=== PATIENT | female | born 1960 ===

== ENCOUNTER 2018-08-08 01:14 | Inpatient (IN) | payer BC ==
[~2018-08-08] VITALS: Ht 160 cm; Wt 91.6 kg
[2018-08-08] VITALS (10 sets, daily range): BP systolic 127–183; BP diastolic 60–82
[~2018-08-08 01:14] MED LIST: ACET500T68 PO; ATEN-1 PO; BUPR-474 PO; CHOL10005 PO; COPP2CAP2 PO; DICL-195 PO; GABA-549 PO; GARL10004 PO; GLUC-198 PO; LACT1CAP6 PO; OMEP-218 PO; POTA99TA6 PO; TRAM-420 PO; VITA-200 PO; VITA1CAP46 PO; [UNRECOGNIZED DRUG - CODE] PO; [UNRECOGNIZED DRUG - CODE] PO
[2018-08-08] MEDS ORDERED: fentaNYL CITR 100 MCG/2 ML AMP ONE ×2 (09:20→16:23)
[2018-08-08] MEDS ORDERED: DEXAMETHASONE SOD PHOS 10MG/ML ONE (09:21)
[2018-08-08] MEDS ORDERED: LIDOCAINE MPF 1% 5 ML VIAL ONE (09:21)
[2018-08-08] MEDS ORDERED: KETAMINE HCL-NS 50 MG/5 ML SYR ONE (09:21)
[2018-08-08] MEDS ORDERED: ONDANSETRON 4 MG/2 ML VIAL ONE (09:21)
[2018-08-08] MEDS ORDERED: PROPOFOL EMUL(*) 10MG/ML 20 ML 20 ML ONE (09:21)
[2018-08-08] MEDS ORDERED: ROCURONIUM BR 10 MG/ML 5 ML SY 5 ML ONE (09:22)
[2018-08-08] MEDS ORDERED: NORMOSOL R SOLN(*) 1000 ML BAG 1,000 ML IV PRN (10:50)
[2018-08-08] MEDS ORDERED: ceFAZolin(*) 2GM/D5W 50ML 50 ML IVPB ONE (10:50)
[2018-08-08] MEDS ORDERED: MIDAZOLAM 2 MG/2 ML VIAL IVP PRN (10:50)
[2018-08-08] MEDS ORDERED: BACITRACIN 50000 UNIT/VIAL 50,000 UNIT in NS 0.9% IRRIG(*) 1000ML PLCT 1,000 ML IR PRN (10:50)
[2018-08-08] MEDS ORDERED: LIDOCAINE/SOD BICARB 8.4% SYR ID ONE (10:50)
[2018-08-08] MEDS ORDERED: ACETAMINOPHEN 500 MG TAB PO ONE (10:50)
[2018-08-08] MEDS ORDERED: REMIFENTANIL HCL 1 MG VIAL ONE ×2 (11:45→15:15)
[2018-08-08] MEDS ORDERED: ROPIVACAINE 0.2% 20 ML VIAL ONE (12:31)
[2018-08-08] MEDS ORDERED: THROMBIN (BOVINE) 20,000 UNIT VIAL ONE (12:31)
[2018-08-08] MEDS ORDERED: GLYCOPYRROLATE 0.2MG/ML 1 ML INJ ONE (13:48)
[2018-08-08] MEDS ORDERED: HYDROmorphone HCL 2 MG/ML SDV ONE (16:26)
[2018-08-08] MEDS ORDERED: diphenhydrAMINE 25 MG CAP PO PRN (17:40)
[2018-08-08] MEDS ORDERED: BENZOCAINE/MENTHOL 1 EACH LOZG PO PRN (17:40)
[2018-08-08] MEDS ORDERED: MAGNESIUM HYDROXIDE* 30ML UDCP PO PRN (17:40)
[2018-08-08] MEDS ORDERED: BISACODYL 10 MG SUPP PR PRN (17:40)
[2018-08-08] MEDS ORDERED: HYDROmorphone HCL 2 MG/ML SDV IVP PRN (17:40)
[2018-08-08] MEDS ORDERED: FLUSH 10 ML SYR IVP PRN (17:40)
[2018-08-08] MEDS ORDERED: LR(*) 1000 ML BAG 1,000 ML IV PRN ×2 (17:40→17:55)
[2018-08-08] MEDS ORDERED: ACETAMINOPHEN(*)1000 MG/100 ML 100 ML IVPB PRN (17:40)
[2018-08-08] MEDS ORDERED: ONDANSETRON 4 MG/2 ML VIAL IVP PRN (17:40)
--- NOTE | 2018-08-08 18:13 | OPERATIVE REPORT 1 ---
EVENT DATE: August 08, 2018 SURGEON: Matt Baez MD ANESTHESIOLOGIST: Jimy Shaffer MD ANESTHESIA: General endotracheal anesthesia. BI SPECIALIST: Chris Trujillo PA-C PREOPERATIVE DIAGNOSES 1. Multi-level degenerative disk disease. 2. L3-L4 degenerative spondylolisthesis. 3. L3-L4 severe central spinal stenosis. 4. Status post L4 to S1 laminectomy and fusion. 5. L4-L5 fusion nonunion. 6. Retained deep implants. 7. Neurogenic claudication and radiculopathy secondary to #2 above. POSTOPERATIVE DIAGNOSES 1. Multi-level degenerative disk disease. 2. L3-L4 degenerative spondylolisthesis. 3. L3-L4 severe central spinal stenosis. 4. Status post L4 to S1 laminectomy and fusion. 5. L4-L5 fusion nonunion. 6. Retained deep implants. 7. Neurogenic claudication and radiculopathy secondary to #2 above. PROCEDURES PERFORMED 1. Removal of deep implants L4 to S1. 2. Exploration of fusion. 3. Re-instrumentation and re-fusion of L4-L5. 4. L3-L4 laminectomy. 5. Placement of pedicle screws in bilateral L3 pedicles. 6. Placement of instrumentation and reduction of L3-L4 spondylolisthesis using pedicle screw construct from L3 to L5. INTRAVENOUS FLUIDS 2300 mL. ESTIMATED BLOOD LOSS 140 mL. IMPLANTS USED 1. Pedicle screws 6.5 mm x 45 mm from [employer] times six. 2. Connecting rods 5.5 mm x 70 mm from [employer] times two. 3. Locking caps for pedicle screws from [employer] times six. SPECIMENS None. DRAINS None. COMPLICATIONS None. DISPOSITION Post-Anesthesia Care Unit. INDICATIONS FOR SURGERY Ms. Tabares is a 58-year-old female who underwent L4 to S1 transforaminal lumbar interbody fusion back in 2014. She initially had very good results with alleviation of her radiating leg pain as well as back pain, but then last summer, she had a recurrence of back pain accompanied by significant left leg numbness and right leg radiating pain, numbness, and tingling. She had a significant decrease in walking tolerance secondary to heaviness and tiredness in her legs and had difficulty lying flat on her back, having to sleep in a recliner every night secondary to the symptoms she gets if she lies on her back. Her physical examination was significant for decreased range of motion in extension as well as lateral bending. She had negative crossed straight leg raise and negative straight leg raising tests, but did have some decreased extensor hallucis longus, quadriceps, hamstrings, and peroneals on the left at 4+/5 compared to 5/5 throughout on the right. Sensation was intact in all dermatomes. Imaging studies showed a spondylolisthesis grade 2 at L3-L4 while standing, which reduced to about a grade 1 spondylolisthesis when lying supine in the MRI scanner. Her pedicle screw construct was present from L4 to S1 with PEEK interbody implants at L4-L5 and L5-S1. We sent her for a CT scan that did not show definitive evidence of fusion at L4-L5, and the MRI also showed severe stenosis at L3-L4. Secondary to ongoing symptoms and failure of nonsurgical care including physical therapy, medications, activity modifications, etc., Ms. Tabares was ultimately offered and elected to undergo removal of implants, exploration of fusion, re-fusion if necessary at L4-L5, laminectomy at L3-L4, and posterolateral instrumented fusion from L3 to L4 and to L5 if necessary. Prior to surgery, I explained in detail to the patient the possible risks of surgery. These risks include bleeding, infection, damage to surrounding structures, nerve root injury, spinal fluid leak, meningitis, persistent and/or worsening pain, , blindness, sexual dysfunction, autonomic nervous system dysfunction, and other unforeseen medical and surgical complications. An understanding that in general spinal surgery is more predictive at improving extremity discomfort than axial spine pain was stressed. Additional discussion was had regarding the revision nature of the procedure, and the patient understands that all potential risks are increased, including infection, dural tear, spinal fluid leak, nerve root injury, etc., secondary to the revision nature of the procedure and the presence of significant scar tissue. DESCRIPTION OF PROCEDURE On the day of surgery, patient was met in the preoperative hold area, and all questions were answered. The operative site was identified and marked by myself. The patient was brought in good condition to the operating room, and after succumbing to anesthesia, was positioned in the prone position on a Kvng table. All bony protuberances and soft tissues were well padded in the standard fashion. Preoperative antibiotics were administered according to the appropriate timing schedule. Care was taken to maintain appropriate perfusion pressures during anesthesia. At the conclusion of the procedure, sponge and needle counts were correct times two. A final timeout was undertaken by members of the operating team to confirm correct levels, correct surgery, and correct patient. The patient was then prepped and draped in the standard sterile orthopedic fashion. A vertical incision was made overlying the intended surgical levels utilizing the majority of the old incision and a little bit of a new incision superiorly. Sharp dissection was carried out down to the posterior elements of L2 and L3, and the soft tissues were elevated in a subperiosteal manner off the L2 and L3 lamina. Care was then taken to use electrocautery to dissection kind of anterolaterally out towards the previously placed pedicle screw construct, and once the pedicle screw construction was exposed bilaterally, the caps and rods were removed using appropriate spinal instrumentation. At this point, we began exploring the fusion mass. It was relatively clear when grabbing and lifting up on the L4 pedicle screws that there was motion occurring at the L4-L5 level. To confirm this, we brought fluoroscopy into the field, and under lateral fluoroscopy, we went live and were, indeed, able to see significant motion, indicating a nonunion at that L4-L5 level. Secondary to this, we elected to include the L4-L5 level in our fusion construct. Once we had confirmed the presence of the nonunion at L4-L5, we removed all pedicle screws and irrigated with copious sterile saline solution. Attention was then turned to the L3-L4 laminectomy. The spinous process of L3 was removed using a Leksell rongeur. The lamina was then thinned down the middle utilizing a combination of a Leksell rongeur and a high-speed frederic. Once we were able to identify the superior attachment of the ligamentum flavum on the inferior aspect of the L3 lamina, I was able to use a curved curette to undermine that ligamentous insertion and enter the canal. A [place] elevator was used to free any dural adhesions from surrounding bone and soft tissue prior to use of the Kerrison punch. #3 and #4 Kerrison punches were used to perform midline decompression. We then performed bilateral lateral recess decompressions, removing significant amounts of thickened ligamentum flavum and overgrown bone and facet joint. At the conclusion of this, a [place] elevator was used to ensure that there was good decompression of the lateral recesses as well as the foramina of all involved nerve roots. Hemostasis was obtained in the lateral recesses utilizing a combination of FloSeal and surgical patties. Attention was then turned to placement of pedicle screws. We had previously cleared off the start points for L3 pedicles bilaterally out to the tips of the spinous processes of L3 on both sides. We then exposed what was left of the spinous processes of L4 in addition to the superior aspect of the L5-S1 fusion mass. Once we had accomplished this, we first replaced the screws at L4 and L5 utilizing the same size screws, which were 6.5 mm x 45 mm in both cases. We tested these with neurophysiologic monitoring, and they all tested over 20 mA. We then turned our attention to L3, and a high-speed frederic was used to decorticate the overlying bone at the starting point for pedicle screws. This was at approximately the junction of the midpoint of the transverse process, the superior aspect of the L3 pars interarticularis, and lateral aspect of the L2-L3 facet. A Lenke style probe was advanced against resistance through the isthmus of the pedicle, and we then used a ball-tip feeler to check all the [place] of the pedicles superiorly, inferiorly, medially, laterally, as well as distally to confirm absence of bony breaching. Once this was confirmed, we selected 6.5 mm x 45 mm pedicle screws with extended tabs for that L3 level, and these were placed in the standard fashion. We next measured for appropriate length connecting rods and selected 70 mm connecting rods. These were placed in the tulips and down into the extended tabs of the slipped level at L3. We then carefully and gradually reduced the L3-L4 anterolisthesis using the extended tabs until we had the locking caps all the way down into the tulips of all six screws. Once this was completed, we performed final tightening using the final tightening device and breaking off the ends of the locking caps. The entire wound was then irrigated with copious sterile saline solution in preparation for the actual fusion procedure. A high-speed frederic was used to decorticate the superior aspect of the L5-S1 fusion mass, the remainder of the L4 transverse process, and the entirety of bilateral L3 transverse processes. I also utilized the high-speed frederic to decorticate the L4-L5 facet joint inside, and we packed all of that bone dust into the decorticated facet. We then utilized a combination of milled local bone and demineralized bone matrix with cancellous chips to pack the lateral gutters overlying the previously decorticated areas. Once this was completed, retractors were withdrawn, and final radiographs were obtained that showed excellent positioning of all the spinal instrumentation. The wound was then closed in layers using interrupted sutures for the deep fascia, inverted interrupted sutures for the subcutaneous tissue, and then a running subcuticular skin stitch. Sponge and needle counts were correct times two. POSTOPERATIVE CARE PLAN The patient will remain in the hospital one or two nights until she meets discharge criteria. She will be discharged home wearing a brace for a total of six weeks and with instructions to follow up with me in two weeks for a wound check and examination. YASSINE
[2018-08-08] MEDS: oxyCODONE HCL 5 MG CAP PO PRN (18:45)
--- NOTE | 2018-08-08 18:57 | RADIOLOGY IMAGING REPORT ---
FACILITY: [facility] PATIENT NAME: Dora Tabares : 1960 MR: [id number] V: [id number] EXAM DATE: ORDERING PHYSICIAN: ADAL QUARLES TECHNOLOGIST: Location: [facility] - [place] Patient: Dora Tabares : 1960 Visit/Account:[id number] Date of Sevice: 08/08/2018 Lumbar spine images INDICATION: L3-4 disc herniation. Fusion. COMPARISON: None available FINDINGS: DAP: 4.43 Gy-cm2 4 fluoroscopic images lumbar spine show localization at L3-L4. Evidence of posterior fusion spanning L4-S1. Interbody disc spacer at L4-L5 and L5-S1 noted as well. Correlate with findings at time of tram ging. IMPRESSION: Localization lower lumbar spine. Correlate with findings at time of imaging. Report Dictated By: Parish Louie MD at 08/08/2018 6:49 PM Report E-Signed By: Parish Louie MD at 08/08/2018 6:51 PM WSN:[id number]
--- NOTE | 2018-08-08 19:37 | Hospitalist Progress Note ---
Subjective Progress Notes Subjective No cp/sob. 100cc of EBL. 2000cc of crystalloid and dexamethasone given intra- op. Physical Exam Vital Signs Date Time Temp Pulse Resp B/P (MAP) Pulse Ox O2 Delivery O2 Flow Rate FiO2 08/08/18 18:45 56 12 138/71 (93) 95 Nasal Cannula 1.0 08/08/18 18:00 98.4 General Appearance: No Acute Distress (Sleepy. ) Neuro: Other (Answers questions appropriately, but forgets her questions. Sleepy) Cardiovascular: Regular Rate and Rhythm (2/6 systolic murmur across precordium and louder in axilla.) Respiratory: Clear to Auscultation Extremities: No Edema Assessment and Plan Problems: (1) Status post lumbar spinal fusion Status: Acute Assessment & Plan: No CV/pulmonary issues. DVT prophylaxis will be deferred to Dr. Baez. (2) HTN (hypertension) Status: Chronic Assessment & Plan: Chronically on atenolol. She took it this morning. It will be continued with bp/p parameters. DARYL ISRAEL MD Aug 08, 2018 19:37
[2018-08-08] MEDS: APAP/HYDROCODONE 325/5 TAB PO PRN (20:59)
[2018-08-08] MEDS: DOCUSATE SODIUM 100 MG CAP PO SCH (21:08)
[2018-08-08] MEDS: ceFAZolin(*) 2GM/D5W 50ML 50 ML IVPB SCH (21:09)
[2018-08-09] VITALS (8 sets, daily range): BP systolic 117–134; BP diastolic 51–63; Ht 160 cm; Wt 91.6 kg
[2018-08-09] MEDS ORDERED: ceFAZolin(*) 2GM/D5W 50ML 50 ML IVPB SCH (01:00)
[2018-08-09] MEDS: ACETAMINOPHEN 500 MG TAB PO PRN ×2 (02:01→12:47)
[2018-08-09] MEDS: ceFAZolin(*) 2GM/D5W 50ML 50 ML IVPB SCH ×2 (05:31→12:40)
[2018-08-09] MEDS: ATENOLOL 50 MG TAB PO SCH (09:00)
[2018-08-09] MEDS: APAP/HYDROCODONE 325/5 TAB PO PRN (09:03)
[2018-08-09] MEDS: DOCUSATE SODIUM 100 MG CAP PO SCH ×2 (09:23→21:00)
[2018-08-09] MEDS: buPROPion XL 150 MG TABCR PO SCH (09:23)
--- NOTE | 2018-08-09 09:29 | NUR ---
Physical Therapy Impression PT eval complete. Pt primarily limited by reports of significant pain. Pt performed sit<>supine transfers with SBA and use of bed rail. Pt performed safe log roll technique some verbal cues. Pt pain significantly increased when initially transferring from supine to EOB. Education provided on lumbar brace, brace donned sitting EOB. Pt performed sit<>stand xfers off EOB and commode with MinAx2.Pt took several steps to/from bed side commode with CGAx2 and use of RW. Pt's legs appeared to give out a few times, but Pt able to control on own. Education provided on lumbar precautions. Pt left supine in bed with all needs met, call light in reach, and family present in room. Pt would benefit from further skilled PT care to improve strength to allow for safe ambulation. Recommendations pending progress. Physical Therapy Goals 1. Carleen bed mobility, with correct log roll technique 2. Carleen transfers 3. Carleen ambulation of 150" ft. with use of least restrictive device 4. Carleen ability to ascend/descend 1 stair, to stimulate curb in environment 5. Independent adherence to lumbar precautions Patient's Goals
[2018-08-09] MEDS ORDERED: NS(*) 0.9% 500 ML BAG 500 ML IV ONE (09:35)
[2018-08-09] MEDS ORDERED: CALCIUM CARBONATE 500 MG CHEW PO PRN (09:35)
--- NOTE | 2018-08-09 09:59 | Hospitalist Progress Note ---
Subjective Progress Notes Subjective She was admitted s/p lumbar surgery. She had no acute events overnight. Patient Complains of: Cardiovascular: No: Chest Pain Respiratory: No: Shortness of Breath Physical Exam Vital Signs Date Time Temp Pulse Resp B/P (MAP) Pulse Ox O2 Delivery O2 Flow Rate FiO2 08/09/18 09:00 95 Room Air 08/09/18 07:35 98.4 53 16 134/59 (84) 08/09/18 04:00 1.0 Intake and Output 08/09/18 07:01 Intake Total 5250 ml Output Total 1250 ml Balance 4000 ml Intake Oral 300 ml IV Total 2550 ml Other 2400 ml Output Urine Total 1150 ml Estimated Blood Loss 100 ml General Appearance: Alert, Awake, No Acute Distress, Afebrile Cardiovascular: Other (bradycardia noted) Respiratory: No Respiratory Distress, Clear to Auscultation GI: Soft and Non-Tender Psych: Alert & Oriented X3, Appropriate Mood & Affect Assessment and Plan Problems: (1) Status post lumbar spinal fusion Status: Acute Assessment & Plan: No CV/pulmonary issues. DVT prophylaxis will be deferred to Dr. Baez. (2) HTN (hypertension) Status: Chronic Assessment & Plan: Chronically on atenolol. She took it this morning. It will be continued with bp/p parameters. (3) Urinary retention Status: Acute Assessment & Plan: She has been having difficulty urinating. She had straight catheter once this morning. Continue to monitor. She will be placed on Flomax to help with urination. Will also give 500ml bolus. Exam Sepsis Risk: No Definite Risk Problem Qualifiers (1) HTN (hypertension): Hypertension type: essential hypertension Qualified Codes: I10 - Essential (primary) hypertension NUPUR WALSH LEGAL ADMINISTRATIVE SECRETARY Aug 09, 2018 09:59
[2018-08-09] MEDS: TAMSULOSIN HCL 0.4 MG CAP PO SCH (10:04)
--- NOTE | 2018-08-09 12:23 | NUR ---
This Physical Therapist or Architect Internship was present for the entire physical therapy session directing the services, making the skilled judgement, and was not engaged in treating another patient or doing another task at the same time as the treatment session. Addendum: 08/09/18 at 1223 by FLEX ANDERSON PT Amended: Links added.
[2018-08-09] MEDS: oxyCODONE HCL 5 MG CAP PO PRN (15:14)
[2018-08-09] MEDS: DIAZEPAM 5 MG TAB PO PRN (16:42)
[2018-08-10] MEDS: APAP/HYDROCODONE 325/5 TAB PO PRN ×2 (00:42→08:27)
[2018-08-10 03:21] VITALS: BP 132/57
[2018-08-10] MEDS: DIAZEPAM 5 MG TAB PO PRN ×2 (03:26→11:17)
[2018-08-10 07:05] VITALS: BP 146/72
[2018-08-10] MEDS ORDERED: POLYETHYLENE GLYCOL 17 GM PKT PO SCH (09:00)
--- NOTE | 2018-08-10 09:00 | NUR ---
Met with patient who reports needing further rehab before returning home. Rehab philosophy emphasized, pt agrees to get oob with PT/OT/NSG. Olivia Landry notified to request insurance approval, pt will admit to ECF pending insurance. PASRR negative.
--- NOTE | 2018-08-10 09:14 | Hospitalist Progress Note ---
Subjective Progress Notes Subjective She was admitted s/p lumbar fusion. She reports urinary retention post- operatively. She was started on Flomax, without any relief yesterday. Patient Complains of: Cardiovascular: No: Chest Pain Respiratory: No: Shortness of Breath Physical Exam Vital Signs Date Time Temp Pulse Resp B/P (MAP) Pulse Ox O2 Delivery O2 Flow Rate FiO2 08/10/18 07:30 100 Room Air 08/10/18 07:05 98.0 62 16 146/72 (96) 08/09/18 04:00 1.0 Intake and Output 08/10/18 01:01 Intake Total 1030 ml Output Total 750 ml Balance 280 ml Intake Oral 880 ml IV Total 150 ml Output Urine Total 750 ml General Appearance: Alert, Awake, No Acute Distress, Afebrile Neuro: No Gross deficits Cardiovascular: Regular Rate and Rhythm Respiratory: No Respiratory Distress, Clear to Auscultation GI: Soft and Non-Tender Psych: Alert & Oriented X3, Appropriate Mood & Affect Assessment and Plan Problems: (1) Status post lumbar spinal fusion Status: Acute Assessment & Plan: No CV/pulmonary issues. DVT prophylaxis will be deferred to Dr. Baez. (2) HTN (hypertension) Status: Chronic Assessment & Plan: Chronically on atenolol. It was continued with hold parameters. (3) Urinary retention Status: Acute Assessment & Plan: She has been having difficulty urinating. She has Devine placed. She was placed on Flomax to help with urination. Urology to consult. Exam Sepsis Risk: No Definite Risk Problem Qualifiers (1) HTN (hypertension): Hypertension type: essential hypertension Qualified Codes: I10 - Essential (primary) hypertension NUPUR WALSH ENGINEERING SECRETARY Aug 10, 2018 09:14
[2018-08-10] MEDS: ATENOLOL 50 MG TAB PO SCH (09:26)
[2018-08-10] MEDS: TAMSULOSIN HCL 0.4 MG CAP PO SCH (09:27)
[2018-08-10] MEDS: buPROPion XL 150 MG TABCR PO SCH (09:27)
[2018-08-10] MEDS: DOCUSATE SODIUM 100 MG CAP PO SCH (09:28)
--- NOTE | 2018-08-10 10:38 | Hospitalist Consultation ---
History of Present Illness Requesting Physician Dr. Matt Baez Reason for Consult Postoperative voiding dysfunction Chief Complaint Postoperative voiding dysfunction History of Present Illness 58-year-old woman who is postoperative day #2 status post extensive lumbar spine manipulation for spinal stenosis and radiculopathy. Postoperatively, she had poor sensation of fullness and impaired emptying. She was begun on Flomax and straight catheterized but continued to have voiding dysfunction and a Devine catheter has been placed. Her preoperative voiding status was consistent with detrusor instability/urge incontinence for which she was using multiple pads a day. She had mild stress incontinence at most. No previous urologic surgeries or manipulations. History Problems: (1) Urinary retention Status: Acute Comment: She has been having difficulty urinating. She has Devine placed. She was placed on Flomax to help with urination. Urology to consult. Home Meds Reported Medications Omeprazole Magnesium (PRILOSEC OTC) 20 Mg Tablet., 1 TAB PO QDAY, TAB 08/01/18 Lactobacillus Combination No.4 (PROBIOTIC) 1 Each Capsule, 1 EACH PO QDAY, CAPSULE 08/01/18 Cholecalciferol (Vitamin D3) (VITAMIN D3) 1,000 Unit Tablet, 5000 UNIT PO BID, TAB 08/01/18 Glucosa Odom 2KCL/Chondroitin Odom (GLUCOSAMINE & CHONDROITIN CAP) 1 Each Capsule, 1 EACH PO QDAY, CAPSULE 08/01/18 Garlic (GARLIC OIL) 1,000 Mg Capsule, 1000 MG PO QDAY, CAPSULE 08/01/18 Potassium Gluconate (POTASSIUM) 99 Mg Tablet, 99 MG PO QDAY 08/01/18 Copper Gluconate (COPPER) 2 Mg Capsule, 2 MG PO QDAY, CAPSULE 08/01/18 Vitamin B Complex (VITAMIN B COMPLEX) 1 Each Capsule, 1 EACH PO QDAY, CAPSULE 08/01/18 Vitamin E Acetate (VITAMIN E) 400 Unit Capsule, 400 UNITS PO QDAY, CAPSULE 08/01/18 Vitamin A (VITAMIN A) 8,000 Unit Capsule, 8000 UNIT PO QDAY, CAPSULE 08/01/18 Acetaminophen (TYLENOL EXTRA STRENGTH) 500 Mg Tablet, 500-1000 MG PO PRN, TAB 08/01/18 Tramadol Hcl (TRAMADOL HCL) 50 Mg Tablet, 50-100 MG PO Q6H PRN for PAIN, TAB 08/01/18 Gabapentin (GABAPENTIN) 300 Mg Capsule, 300 MG PO PRN PRN for PRN, CAPSULE 08/01/18 Diclofenac Sodium (DICLOFENAC SODIUM) 75 Mg Tablet.dr, 75 MG PO BID, TAB 08/01/18 Estrogen,Merced/Me-Testosterone (ESTROGEN-METHYLTESTOS F.S. TAB) 1 Each Tablet, 1.5-2.5 MG PO QDAY 08/01/18 Atenolol (ATENOLOL) 50 Mg Tablet, 1 TAB PO QDAY, TAB 08/01/18 Bupropion Hcl (WELLBUTRIN XL) 300 Mg Tab.er.24h, 300 MG PO QDAY, TAB 08/01/18 Allergies: Coded Allergies: No Known Drug Allergies (Unverified , 08/01/18) Patient History: FH: Crohn's disease FATHER, FH: cancer FATHER, BROTHER OR SISTER FH: hypertension MOTHER, FH: type 2 diabetes MOTHER, Transient ischemic attacks FATHER, Hx Smoking: Yes (3 PPDX 10 YEARS) Smoking Status: Former Smoker, Heavy Tobacco Smoker When Quit Tobacco?: AGE 23 Alcohol Used: Liquor Hx Substance Use Disorder: No Social Drug Use: Never History of IV Drug Use: No Review of Systems Genitourinary: Other (predominantly urge type incontinence preoperatively) Exam Vital Signs Vital Signs Date Time Temp Pulse Resp B/P (MAP) Pulse Ox O2 Delivery O2 Flow Rate FiO2 08/10/18 11:18 98.7 78 14 146/76 (99) 95 Room Air 08/10/18 10:33 General Appearance: Alert, Awake, No Acute Distress GI: Abd Soft and Non-Tender : No CVA Tenderness, Other (Devine catheter is indwelling draining clear urine) Medical Decision Making Pre-Admit Course Medical Record Review: Yes Assessment and Plan Problems: (1) Urinary retention Status: Acute Time Spent on Plan of Care: < 30 min Venous Thromboembolism Antithrombotics Is Pt On Any Antithrombotics?: Yes Exam Sepsis Risk: No Definite Risk MATT KIMBROUGH MD Aug 10, 2018 10:38
[2018-08-10 11:18] VITALS: BP 146/76
--- NOTE | 2018-08-10 12:14 | NUR ---
Physical Therapy Impression Attempted to see pt for mobility this am. Pt reports a high increase in pain and requested to attempt again later. After discussion with pt's nurse and D/C buyer planner, pt will likely transfer to [facility] this date, thus will receive therapy as her eval at that time. Physical Therapy Goals 1. Carleen bed mobility, with correct log roll technique 2. Carleen transfers 3. Carleen ambulation of 150" ft. with use of least restrictive device 4. Carleen ability to ascend/descend 1 stair, to stimulate curb in environment 5. Independent adherence to lumbar precautions Patient's Goals
[2018-08-10] MEDS: oxyCODONE HCL 5 MG CAP PO PRN (12:24)
--- NOTE | 2018-08-10 13:20 | Psychiatric Consult ---
History of Present Illness Requesting Physician Marysol Goldsmith Reason for Consult: Psychiatric Illness Reason for Consult Anxiety and depression symptoms post surgery. History of Present Illness Mrs. Tabares presented today tearful, with anxious and depressed mood following back surgery two days ago. Per her history, she has had anxiety and depression since her teens, and symptoms have been well controlled prior to surgery with hormone replacement, vitamins, and bupropion XL 300mg PO QDAY. Historically, during times of increased stress/anxiety/depression she has been prescribed other psychiatric medications, notably sertraline, which reduced her symptoms. She recounts one period of time, roughly a year, in which her depression was not well controlled and she was not able to take part in holidays or maintain good self-care (such as eating regularly). She stated that she normally does not require additional antidepressants/anxiolytics besides the bupropion, but suspects that the lack of estrogen, B vitamins, and current stressors are cont ributing factors to her mood. Her goal in seeking help is to avoid "going there again" referring to the year she struggled with these symptoms. Her current stressors include pain (10/10 with movement) in her back, an unexpected increase in expected duration of hospitalization, and family concerns. 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 Protective factors include strong katerin and a supportive family (, daughter, and son). She rated depression at a 4-5 of 10, and anxiety as a 5 of 10 except with pain, when anxiety increases to a 10 of 10. She denies SI, stating she does not believe in it. Case was staffed with Ezequiel Daily MD Psychiatrist. Natali Velarde DNP-S, RN Patient Refused Consult: No BHS - Subjective Progress Notes Suicidal Ideation: None Homicidal Ideation: None BHS - Objective Mental Status Exam General Appearance: Casual, Well Groomed, Good Eye Contact, Cooperative, Polite, Good Interaction, Tearful; No Psychomotor Agitation, No Psychomotor Retardation, No Bizarre Mannerisms, No Tics Speech: Clear, Spontaneous, Normal Rate, Normal Rhythm, Normal Volume, Normal Tone Mood: Dysthmic/Depressed Affect: Calm, Sad; No Withdrawn; Tearful, Anxious; No Agitated Thought Process: Organized, Logical, Goal Directed; No Loose Associations, No Flight of Ideas Thought Content: No Suicidal Ideation, No Homicidal Ideation, No Delusions, No Auditory Halllucinations, No Visual Hallucinations, No Thought Broadcasting, No Ideas of Reference, No Obsessions, No Compulsions Sensorium: Clear Cognition: Alert & Oriented-Person, Alert & Oriented-Place, Alert & Oriented- Time, [id number]-[id number] Memory: Immediate, Recent, Remote Intelligence: Average Insight Judgment: Intact, Appropriate BHS Assessment and Plan [id number] Encounter Date: Aug 10, 2018 [id number] Encounter Time: 11:00 Follow Up Testing Recommended: No Problems: (1) Dysthymia Status: Chronic (2) Adjustment disorder with mixed anxiety and depressed mood Optional Permanent Comment: related to recent medical stressor Last Edited By: Ezequiel Daily on Aug 10, 2018 13:16 Status: Acute Treatment Recommendation: Outpatient Treatment (continue medication management and therapy post discharge), Other Recommendation Details 1. Start sertraline 50mg PO QDAY, first dose now. Check with primary physician regarding slight possibility of platelet inhibition in post-operative state. 2. B-complex PO QDAY, first dose tomorrow 3. Vitamin D 2000mg PO QDAY, first dose tomorrow EZEQUIEL DAILY MD Aug 10, 2018 13:05
== END 2018-08-10 13:41 | DRG 460 ==
LOC: OR 01:14 → MED 18:02
PROVIDERS: ADMIT Orthopaedic Surgery; ATTEND Orthopaedic Surgery
PROC: 0SP30AZ Removal of Interbody Fusion Device from Lumbosacral Joint, Open Approach (ICD-10-PCS; 2018-08-08)
PROC: 0SP00AZ Removal of Interbody Fusion Device from Lumbar Vertebral Joint, Open Approach (ICD-10-PCS; 2018-08-08)
PROC: 0SG1071 Fusion of 2 or more Lumbar Vertebral Joints with Autologous Tissue Substitute, Posterior Approach, Posterior Column, Open Approach (ICD-10-PCS; principal; 2018-08-08 12:50)
PROC: 01NB0ZZ Release Lumbar Nerve, Open Approach (ICD-10-PCS; 2018-08-08 12:50)
DX: M96.0 Pseudarthrosis after fusion or arthrodesis (principal); M51.16 Intervertebral disc disorders with radiculopathy, lumbar region; M48.062 Spinal stenosis, lumbar region with neurogenic claudication; M43.16 Spondylolisthesis, lumbar region; I10 Essential (primary) hypertension; Z87.891 Personal history of nicotine dependence; Z90.49 Acquired absence of other specified parts of digestive tract
CPT/HCPCS: 36415; 76000; 86850; 86900; 86901; 95940; 97161; C1713; J0131; J0690; J1100; J1170; J2001; J2250; J2405; J2704; J2795; J3010; J3490; J7040

== ENCOUNTER 2018-08-10 12:21 | Inpatient (IN) | payer BC ==
[2018-08-09 07:53] VITALS: Ht 162.6 cm; Wt 93.0 kg
[~2018-08-10] VITALS: Ht 162.6 cm; Wt 93.0 kg
[2018-08-10] MEDS ORDERED: BISACODYL 10 MG SUPP PR PRN (13:58)
--- NOTE | 2018-08-10 14:04 | ECF H&P BLANK ---
ECF H&P UPDATE Subjective Progress Notes Subjective She was admitted s/p lumbar fusion. She reports urinary retention post- operatively. She was started on Flomax, without any relief yesterday. Patient Complains of: Cardiovascular: No: Chest Pain Respiratory: No: Shortness of Breath Physical Exam Vital Signs Date Time Temp Pulse Resp B/P (MAP) Pulse Ox O2 Delivery O2 Flow Rate FiO2 08/10/18 07:30 100 Room Air 08/10/18 07:05 98.0 62 16 146/72 (96) 08/09/18 04:00 1.0 Intake and Output 08/10/18 01:01 Intake Total 1030 ml Output Total 750 ml Balance 280 ml Intake Oral 880 ml IV Total 150 ml Output Urine Total 750 ml General Appearance: Alert, Awake, No Acute Distress, Afebrile Neuro: No Gross deficits Cardiovascular: Regular Rate and Rhythm Respiratory: No Respiratory Distress, Clear to Auscultation GI: Soft and Non-Tender Psych: Alert & Oriented X3, Appropriate Mood & Affect Assessment and Plan Problems: (1) Status post lumbar spinal fusion Status: Acute Assessment & Plan: No CV/pulmonary issues. DVT prophylaxis will be deferred to Dr. Baez. (2) HTN (hypertension) Status: Chronic Assessment & Plan: Chronically on atenolol. It was continued with hold parameters. (3) Urinary retention Status: Acute Assessment & Plan: She has been having difficulty urinating. She has Devine placed. She was placed on Flomax to help with urination. Urology to consult. Exam Sepsis Risk: No Definite Risk Problem Qualifiers (1) HTN (hypertension): Hypertension type: essential hypertension Qualified Codes: I10 - Essential (primary) hypertension NUPUR WALSH Aug 10, 2018 09:14 <Electronically signed by UMA SPANGLER> D/ 3 3 3 DANIELE/MITZI CC: The above acute care issues are resolving and/or stable. Patient requires jail and/or skilled rehabilitation and is ready for admission to [facility]. Any change in condition is described below. NUPUR WALSH Aug 10, 2018 14:04
[2018-08-10 14:16] VITALS: BP 107/59
--- NOTE | 2018-08-10 15:29 | OT ECF NOTE ---
Type of Note: Initial Note Primary Medical Diagnosis: Generalized weakness s/p lumbar fusion (see EMR for extensive details). *Lumbar Precautions, Baja brace when OOB* Occupational Therapy Evaluation Date: 08/10/18 SUBJECTIVE: Prior Hospitalization: [facility] 08/08/18-08/10/18 Prior Level of Function: Modified Independent with ADLs. Assist for IADLs. Occasional use of RW or cane for functional mobility. Prior Living Status: Single level house, Spouse Community Services: No known needs Home Accessibility: Ramp All needs on one level Tub/shower combination Equipment Owned: Rollator Tub/shower chair Medical Complications/Past Medical History: Please refer to EMR Psychosocial Support: Spouse Pain Scale (0-10): Pt reporting significant pain limiting tolerance for functional transfers. No numerical rating provided. Pt expressing relief upon return to supine in bed. Pt reporting pain in right lower extremity is worse than back pain. OBJECTIVE: Strength: MMT: Right Left Shoulder Flexion WFL WFL Elbow Flexion WFL WFL Wrist Extension WFL WFL Custodial Foreman WFL WFL (5= normal, 4= good, 3= fair, 2= poor, 1= trace) ROM: Both upper extremities, WFL Functional Transfer: Assistive Device: Front wheeled walker, Gait belt Transfer Ability: 2 or more person assist CGA, Minimum assistance, Verbal cues Pt reporting fear of falling with transfer. Recommend use of EZ lift at this time for patient and staff safety. ADL: Upper body dressing: Assistive device: Upper body dressing ability: N/T Lower body dressing: Assistive device: Lower body dressing ability: N/T Toileting: Assistive device: Toileting ability: N/T Grooming/hygiene: Assistive device: Grooming ability: N/T Bathing: Assistive device: Bathing ability: N/T Standardized Assessment: Abel Index of Activities of Daily Livin/20 upon initial evaluation (08/10/18) ASSESSMENT: Dora presents to [facility] requiring two person assist for stand pivot transfers or use of an EZ lift with staff. She requires one-two person assist for all ADLs. At [facility], pt was independent with ADLs and residing in a single level home with spouse. She will benefit from skilled OT services to increase activity tolerance and strength to optimize independence for engagement in ADLs/IADLs. Problem List/Current Limitations: Pain Decreased activity tolerance Generalized weakness Short Term Goals: 1) Pt will be SBA UB/LB dressing. 2) Pt will be SBA toilet task. 3) Pt will be SBA grooming/hygiene. 4) Pt will be Min A shower task. 5) Pt Abel Index of ADLs score will improve by 2 points. Care Home Goals: Return home with services Patient Goals: Return home, "move better" Rehabilitation Prognosis: Fair Barriers to Discharge: pain PLAN: The patient will benefit from skilled occupational therapy services 5 times per week for 2 weeks including: Ther ex ADL training Safety training Ther act IADL training Transfer training Adaptive equip training Bed mobility Energy conservation Thank you for this referral. If you have any questions, concerns, or comments about this report or plan, please contact me at . Ariane Hart MS, OTR/L Occupational Therapist [place]
--- NOTE | 2018-08-10 16:25 | PT ECF NOTE ---
Type of Note: Initial Note Primary Medical Diagnosis: Lumbar Fusion Physical Therapy Evaluation Date: 08/10/2018 SUBJECTIVE: Prior Hospitalization: 08/08/2018 for lumbar fusion Prior Level of Function: Independent with ADLs, only needing assistance with "heavy cleaning". Occasional use of RW when pain increased Prior Living Status: Single level house with spouse Community Services: Independent, No known needs Home Accessibility: Ramp, All needs on one level Equipment Owned: Rollator Medical Complications/Past Medical History: See EMR OBJECTIVE: Strength: Not assessed due to pain Bed Mobility: ModAx2 with verbal cues for log roll Assistive device: Transfers: MinAx2 for stand pivot transfer Assistive Device: Front wheeled walker Gait: Pt unable. Assistive device: Front wheeled walker ASSESSMENT: PT/OT co-eval completed. Pt limited throughout session by high levels of pain in back, and also pain in R leg. Tolerance to activity significantly decreased due to the reports of pain. Unable to assess strength or ambulation further than what was require for transfer, due to the pain. Pt able to perform a stand pivot transfer from wheelchair to bed, with MinAx2. To transfer sitting EOB to supine required ModAx2. Pt would benefit from continued skilled PT care to improve strength to functional levels, to ensure safe ambulation, and to return to previous independent baseline. Problem List/Current Limitations: Pain, Decreased WB, Decreased activity roldan, Decreased strength, Decreased ROM, and Decreased balance Short Term Goals: 1. Carleen bed mobility, with correct log roll technique 2. Carleen transfers 3. Carleen ambulation of 150 ft. with use of least restrictive assisted device 4. Carleen ability to ascend/descend 1 stair, to stimulate curb in environment. 5. Independent adherence to lumbar fusion precautions. Rehabilitation Prognosis: Good Barriers for Discharge: Pain control PLAN: The patient will benefit from skilled physical therapy services 5 times per week for 2 weeks including: Therapeutic Exercise, Therapeutic Activities, Transfer Training, Gait Training, Stair Training, ADL's, Safety Training, Pt/Caregiver Training, and Bed Mobility Thank you for this referral. If you have any questions, concerns, or comments about this report or plan, please contact me at . Jung Thayer, SPT Dorys Adkins, PT, DPT, GCS MTDD
--- NOTE | 2018-08-10 16:31 | Medical Nutrition Therapy ---
Nutrition Anthropometrics Height (Inches): 63 Weight (Pounds): 202 BMI: 35.8 Hx Weight Loss: Yes (Intentional Wt Loss (Pt states lost 30 lbs within the last year)) Dalton Nutrition Score: Adequate Dalton Nutrition Risk Score: 17 Dietary Referral Nutrition Risk Factors: Nutrition Risk Comment: Physical Findings Physical Appearance: Obese BMI 30-39 Skin Appearance Skin Appearance: Edema Edema Location Modifier: Both Edema Location: Lower Extremity Type of Edema: Degree of Edema: Gastrointestinal Symptoms GI Symtoms: Constipation, Change in Bowel Pattern Tube Present: Bowel Sounds: Recent Bowel Pattern: Constipated Stool Characteristics: Nutrition/Food History Multivitamins/Minerals Pt had gastric bypass at age 43, taking the recommended vitamins/minerals Improving (Appetite and intake decreased while in hospital) Snacks: Snacks throughout the day Nutritional Diagnosis Nutritional Risk Acuity 3: Fair Appetite Past Medical History: HTN,Gastric Bypass Nutritional Acuity: 3-Mild Energy Requirement: 1895 (MSJ) Protein Requirement: 92 (1g/kg) Fluid Requirement: 1836 (20mL/kg) Diet Comment To RSA: Please send fruit cup at 1000 and veggies at 1400 every day. Nutrition Monitoring & Eval Nutrition Goals: Eat 75-100% Meal Nutrition Follow-Up: Fair Intake RD Patient Assessment Time: [address] Assessment Type: RD Assessment Patient Nutrition Acuity: 3-Mild Follow Up Date: Aug 14, 2018 Nutritional Comment: 08/10/18-Reviewed pt histort, past visit record. Talked to pt this afternoon. Pt has had decreased appetite while here, usually good appetite at home. Pt reported intentional wt loss of 30 lbs over the past year. Pt has hx of HTN, discussed low sodium diet for mgmt of HTN. Pt has a hx of gastric bypass. Reported med list from previous visit shows taking necessary vitamins post gastric bypass. RD will continue to monitor intake, weight, and need for additional nutrition education.DAVID LAUREANO Aug 10, 2018 16:31
--- NOTE | 2018-08-10 16:35 | NUR ---
This Physical Therapist or Tannery Worker was present for the entire physical therapy session directing the services, making the skilled judgement, and was not engaged in treating another patient or doing another task at the same time as the treatment session. Addendum: 08/10/18 at 1636 by TRINO ORTA PT Amended: Links added.
--- NOTE | 2018-08-10 16:36 | NUR ---
Physical Therapy Impression PT/OT co-eval complete, please see EMR and other reports for detailed report. Physical Therapy Goals 1. Carleen bed mobility, with correct log roll technique 2. Carleen transfers 3. Carleen ambulation of 150 ft. with use of least restrictive assisted device 4. Carleen ability to ascend/descend 1 stair, to stimulate curb in environent. 5. Independent adherence to lumbar fusion precautions. Patient's Goals
[2018-08-10] MEDS: APAP/HYDROCODONE 325/5 TAB PO PRN (17:56)
[2018-08-10] MEDS: traZODone HCL 50 MG TAB PO SCH (20:31)
[2018-08-10] MEDS: CHOLECALCIFEROL 1000 UNIT TAB PO SCH (20:31)
[2018-08-10] MEDS: oxyCODONE HCL 5 MG CAP PO PRN (20:32)
[2018-08-10] MEDS: DIAZEPAM 5 MG TAB PO PRN (20:32)
[2018-08-10] MEDS: DOCUSATE SODIUM 100 MG CAP PO SCH (20:32)
[2018-08-11] MEDS: APAP/HYDROCODONE 325/5 TAB PO PRN ×4 (01:38→11:04)
[2018-08-11 03:20] VITALS: BP 157/77
[2018-08-11] MEDS: diphenhydrAMINE 25 MG CAP PO PRN ×3 (06:38→20:30)
[2018-08-11 07:56] VITALS: BP 150/80
--- NOTE | 2018-08-11 08:47 | NUR ---
Oxygen Levels Patient was at 84% on room air, even after a few deep breaths she only went up to 85% and then went back down to 84%. Had her put her O2 on and it came up to 92%. Patient keeps taking nasal con. off and prefers room air. Addendum: 08/11/18 at 0850 by MAGDIEL ROSE Amended: Links added. Addendum: 08/11/18 at 0852 by MAGDIEL ROSE Error Wrong Chart. This note is for Chica Babin. (vitals)
[2018-08-11] MEDS: POLYETHYLENE GLYCOL 17 GM PKT PO SCH (09:07)
[2018-08-11] MEDS: ATENOLOL 50 MG TAB PO SCH (09:08)
[2018-08-11] MEDS: FOLIC ACID/CYANOCOB/PYRIDOXINE PO SCH (09:08)
[2018-08-11] MEDS: DOCUSATE SODIUM 100 MG CAP PO SCH ×2 (09:08→20:30)
[2018-08-11] MEDS: PANTOPRAZOLE SOD 20 MG TABEC PO SCH (09:08)
[2018-08-11] MEDS: LACTOBACILLUS ACIDOPHILUS TAB PO SCH (09:08)
[2018-08-11] MEDS: buPROPion XL 150 MG TABCR PO SCH (09:09)
[2018-08-11] MEDS: CHOLECALCIFEROL 1000 UNIT TAB PO SCH ×2 (09:11→20:30)
[2018-08-11] MEDS: CALCIUM CARBONATE 500 MG CHEW PO PRN (09:17)
--- NOTE | 2018-08-11 10:57 | NUR ---
Patient reports she is feeling tearful much of the time. She is tearful on occasion but also smiles. Her comes to visit during our brief visit. She reports wishing she were well enough to go home. She is sleepy and this therapist commits to returning tomorrow to visit further. She expresses no suicidal thoughts and her statements and behaviors are within normal limits.
[2018-08-11] MEDS: HYDROCORTISONE 1% CR 28.35 GM TP PRN (12:40)
--- NOTE | 2018-08-11 13:05 | Consultant Pharmacy Review ---
Automatic Casting Machine Operator Review Medication Review Do All Mecications have a Diag: Yes Pneumococcal Vaccine HX Pneumo Vac ([id number]): No HX Pneumo Vac (Pneumovax): No Comments Regarding the Review Beers criteria do not apply due to patient age. Please re-evaluate necessity of Lortab, OxyIR, Valium and diphenhydramine on a weekly basis due to risk of respiratory depression and falls associated with these medications. LOURDES LAU Aug 11, 2018 13:05
[2018-08-11 15:20] VITALS: BP 157/77
[2018-08-11] MEDS: oxyCODONE HCL 5 MG CAP PO PRN ×2 (16:57→20:30)
--- NOTE | 2018-08-11 18:40 | NUR ---
1230 Dr Yepez called about patient having a total body rash, asking for a order for some type of cream. 1655 patient given benadryl rash seems to have gotten worst, call to Dr Yepez again, new orders received patient pain medication was changed, deleting lortab, and adding ultram Dr Yepez added Zyrtec to start in the morning.
[2018-08-11] MEDS: traZODone HCL 50 MG TAB PO SCH (20:30)
[2018-08-11] MEDS: DIAZEPAM 5 MG TAB PO PRN (23:02)
[2018-08-11] MEDS: traMADol 50 MG TAB PO PRN (23:02)
[2018-08-12 07:29] VITALS: BP 143/72
[2018-08-12] MEDS: oxyCODONE HCL 5 MG CAP PO PRN ×5 (07:54→19:48)
[2018-08-12] MEDS: ACETAMINOPHEN 500 MG TAB PO PRN ×2 (07:54→15:44)
[2018-08-12] MEDS: CHOLECALCIFEROL 1000 UNIT TAB PO SCH ×2 (08:35→21:44)
[2018-08-12] MEDS: CETIRIZINE HCL 10 MG TAB PO SCH (08:35)
[2018-08-12] MEDS: LACTOBACILLUS ACIDOPHILUS TAB PO SCH (08:35)
[2018-08-12] MEDS: FOLIC ACID/CYANOCOB/PYRIDOXINE PO SCH (08:35)
[2018-08-12] MEDS: buPROPion XL 150 MG TABCR PO SCH (08:36)
[2018-08-12] MEDS: ATENOLOL 50 MG TAB PO SCH (08:36)
[2018-08-12] MEDS: PANTOPRAZOLE SOD 20 MG TABEC PO SCH (08:36)
[2018-08-12] MEDS: DOCUSATE SODIUM 100 MG CAP PO SCH ×2 (08:36→21:44)
[2018-08-12] MEDS: POLYETHYLENE GLYCOL 17 GM PKT PO SCH (08:36)
[2018-08-12] MEDS: MAGNESIUM HYDROXIDE* 30ML UDCP PO PRN (08:36)
[2018-08-12] MEDS: HYDROCORTISONE 1% CR 28.35 GM TP PRN ×2 (08:37→21:47)
--- NOTE | 2018-08-12 14:27 | NUR ---
Patient is oriented x4. Shares spontaneously and statements and behaviors are within normal limits. Patient seems to enjoy conversation and she expresses hopes, fears and memories. She has futuristic orientation and makes no suicidal statements. She references her family as good emotional support for her. She sees herself as improving and her limiting physical condition as temporary. She is encouraged to continue talking and connecting with others.
[2018-08-12 15:04] VITALS: BP 135/70
[2018-08-12] MEDS: diphenhydrAMINE 25 MG CAP PO PRN (19:48)
[2018-08-12] MEDS: traZODone HCL 50 MG TAB PO SCH (21:44)
[2018-08-12] MEDS: DIAZEPAM 5 MG TAB PO PRN ×2 (21:45→21:48)
[2018-08-13] MEDS: ACETAMINOPHEN 500 MG TAB PO PRN ×3 (01:41→21:14)
[2018-08-13] MEDS: oxyCODONE HCL 5 MG CAP PO PRN ×5 (01:41→21:13)
[2018-08-13] MEDS: HYDROCORTISONE 1% CR 28.35 GM TP PRN ×2 (05:59→18:31)
[2018-08-13 07:24] LABS: PLATELET COUNT, AUTOMATED 220 K/uL (150-450)
[2018-08-13 08:10] VITALS: BP 160/71
[2018-08-13] MEDS: buPROPion XL 150 MG TABCR PO SCH (08:24)
[2018-08-13] MEDS: ATENOLOL 50 MG TAB PO SCH (08:24)
[2018-08-13] MEDS: CETIRIZINE HCL 10 MG TAB PO SCH (08:24)
[2018-08-13] MEDS: POLYETHYLENE GLYCOL 17 GM PKT PO SCH (08:24)
[2018-08-13] MEDS: FOLIC ACID/CYANOCOB/PYRIDOXINE PO SCH (08:24)
[2018-08-13] MEDS: CHOLECALCIFEROL 1000 UNIT TAB PO SCH ×2 (08:24→21:14)
[2018-08-13] MEDS: DOCUSATE SODIUM 100 MG CAP PO SCH ×2 (08:25→21:13)
[2018-08-13] MEDS: PANTOPRAZOLE SOD 20 MG TABEC PO SCH (08:25)
[2018-08-13] MEDS: traMADol 50 MG TAB PO PRN (08:25)
[2018-08-13] MEDS: LACTOBACILLUS ACIDOPHILUS TAB PO SCH (08:25)
[2018-08-13] MEDS: GABAPENTIN 300 MG CAP PO PRN (08:26)
[2018-08-13] MEDS: MAGNESIUM HYDROXIDE* 30ML UDCP PO PRN (08:32)
[2018-08-13] MEDS ORDERED: CAMPHOR TP PRN (10:50)
[2018-08-13] MEDS ORDERED: MENTHOL TP PRN (10:50)
--- NOTE | 2018-08-13 12:53 | NUR ---
Occupational Therapy Impression Mod Ax1 supine to sit with cues for log roll. Pt requiring increased time to complete. CGA sit<>stands x2 with RW. Pt fearful and reporting significant pain in right LE. Unable to safely negotiate RW for transfer at this time with one assist. CGA EZ lift for transfer. Education and encouragement provided to promote use of RW in future tx sessions. Pt declined further ADLs. Seated up in chair for lunch, declined further needs. Continue POC. Occupational Therapy Goals 1) Pt will be SBA UB/LB dressing. 2) Pt will be SBA toilet task. 3) Pt will be SBA grooming/hygiene. 4) Pt will be Min A shower task. 5) Pt Abel Index of ADLs score will improve by 2 points. Patient's Goal
[2018-08-13] MEDS: diphenhydrAMINE 25 MG CAP PO PRN ×2 (13:26→21:14)
--- NOTE | 2018-08-13 16:18 | NUR ---
Physical Therapy Impression Pt notes that she wanted to be seen after pain medication was more effective. Pt reminded that she received her medication already more than 2 hours ago and it should be effective currently. Pt appears very drowsy, but also guarding significantly with most movements. Log roll to pt's L) side with cues to move into hooklying position. Pt states she is unable to flex R) LE up in the manner without increased discomfort. Pt requires significant encouragement to complete sit to stand without EZ lift that she has been using with nursing. Pt completed side step to head of bed and declined any further mobility aside from returning to bed with log roll technique. Physical Therapy Goals 1. Carleen bed mobility, with correct log roll technique 2. Carleen transfers 3. Carleen ambulation of 150 ft. with use of least restrictive assisted device 4. Carleen ability to ascend/descend 1 stair, to stimulate curb in environent. 5. Independent adherence to lumbar fusion precautions. Patient's Goals
--- NOTE | 2018-08-13 16:56 | Medical Nutrition Therapy ---
Nutrition Anthropometrics Height (Inches): 64.00 Height (Calculated Centimeters: 162.479324 Weight (Pounds): 207 Weight (Calculated Kilograms): 93.894 BMI: 35.8 Hx Weight Loss: Yes (Intentional Wt Loss (Pt states lost 30 lbs within the last year)) Dalton Nutrition Score: Adequate Dalton Nutrition Risk Score: 17 Dietary Referral Nutrition Risk Factors: Nutrition Risk Comment: Physical Findings Physical Appearance: Obese BMI 30-39 Skin Appearance Skin Appearance: Edema Edema Location Modifier: Both Edema Location: Lower Extremity Type of Edema: Degree of Edema: Gastrointestinal Symptoms GI Symtoms: Constipation, Change in Bowel Pattern Tube Present: Bowel Sounds: Recent Bowel Pattern: Constipated Stool Characteristics: Nutritional Diagnosis Nutritional Risk Acuity 3: Fair Appetite Past Medical History: HTN,Gastric Bypass Nutritional Acuity: 3-Mild Energy Requirement: 1895 (MSJ) Protein Requirement: 92 (1g/kg) Fluid Requirement: 1836 (20mL/kg) Diet Comment To RSA: Please send fruit cup at 1000 and veggies at 1400 every day. Nutrition Monitoring & Eval RD Patient Assessment Time: [address] Assessment Type: RD Re-Assessment Patient Nutrition Acuity: 3-Mild Follow Up Date: Aug 21, 2018 Nutritional Comment: 08/10/18-Reviewed pt histort, past visit record. Talked to pt this afternoon. Pt has had decreased appetite while here, usually good appetite at home. Pt reported intentional wt loss of 30 lbs over the past year. Pt has hx of HTN, discussed low sodium diet for mgmt of HTN. Pt has a hx of gastric bypass. Reported med list from previous visit shows taking necessary vitamins post gastric bypass. RD will continue to monitor intake, weight, and need for additional nutrition education.REINALDO 08/13 Pt cont on DEDE, eating averaged of 53% of meals past 3 days. Wt up 3# since admit. Pt has nonpitting edema BLE. Anticipate wt loss when edema resolved. Hgb 9.2, Hct 28.4, Alb 2.6. Will cont to monitor and encourage healthy intake. ANGELICA LUCAS Aug 13, 2018 16:56
[2018-08-13 20:00] VITALS: BP 136/72
[2018-08-13] MEDS: traZODone HCL 50 MG TAB PO SCH (21:13)
[2018-08-14] MEDS: diphenhydrAMINE 25 MG CAP PO PRN (02:42)
[2018-08-14] MEDS: oxyCODONE HCL 5 MG CAP PO PRN ×4 (02:42→22:03)
[2018-08-14] MEDS: HYDROCORTISONE 1% CR 28.35 GM TP PRN (02:42)
[2018-08-14] MEDS: MAGNESIUM HYDROXIDE* 30ML UDCP PO PRN (02:43)
[2018-08-14] MEDS: ACETAMINOPHEN 500 MG TAB PO PRN (06:27)
[2018-08-14 07:41] VITALS: BP 128/72
--- NOTE | 2018-08-14 08:06 | NUR ---
Message left for Dr. Dickey regarding orders for tamez discontinuation/voiding trial.
[2018-08-14] MEDS: POLYETHYLENE GLYCOL 17 GM PKT PO SCH (08:33)
[2018-08-14] MEDS: CHOLECALCIFEROL 1000 UNIT TAB PO SCH ×2 (08:33→20:58)
[2018-08-14] MEDS: PANTOPRAZOLE SOD 20 MG TABEC PO SCH (08:34)
[2018-08-14] MEDS: buPROPion XL 150 MG TABCR PO SCH (08:34)
[2018-08-14] MEDS: CETIRIZINE HCL 10 MG TAB PO SCH (08:34)
[2018-08-14] MEDS: DOCUSATE SODIUM 100 MG CAP PO SCH ×2 (08:34→20:58)
[2018-08-14] MEDS: LACTOBACILLUS ACIDOPHILUS TAB PO SCH (08:34)
[2018-08-14] MEDS: FOLIC ACID/CYANOCOB/PYRIDOXINE PO SCH (08:34)
[2018-08-14] MEDS: ATENOLOL 50 MG TAB PO SCH (08:37)
[2018-08-14] MEDS: traMADol 50 MG TAB PO PRN ×2 (10:16→19:11)
--- NOTE | 2018-08-14 11:16 | NUR ---
Occupational Therapy Impression Pt alert and agreeable to OT tx. Reporting decreased pain this date. CGA ambulation x18ft with RW. Pt then seated up in shower at end of tx. Pt fatigued and with slight increase in pain at end of tx. Declined further needs at this time. Continue POC. Occupational Therapy Goals 1) Pt will be SBA UB/LB dressing. 2) Pt will be SBA toilet task. 3) Pt will be SBA grooming/hygiene. 4) Pt will be Min A shower task. 5) Pt Abel Index of ADLs score will improve by 2 points. Patient's Goal
--- NOTE | 2018-08-14 13:50 | NUR ---
Physical Therapy Impression Pt resting in bed but agreeable to therapy. Pt requested to delay therapy when approached this am. Pt transferred from supine to sitting at EOB with log roll and modified indep. Pt grimacing and moaning with ambulation but able to complete distance from bed to BR for toileting. Pt then completed amb from toilet to W/C for transport to dining area prior to care conference. While up in W/C pt visiting with and eating her veggie plate without any further vocalizations or complaints of discomfort. Physical Therapy Goals 1. Carleen bed mobility, with correct log roll technique 2. Carleen transfers 3. Carleen ambulation of 150 ft. with use of least restrictive assisted device 4. Carleen ability to ascend/descend 1 stair, to stimulate curb in environent. 5. Independent adherence to lumbar fusion precautions. Patient's Goals
[2018-08-14 16:15] VITALS: BP 130/64
[2018-08-14] MEDS: SERTRALINE HCL 50 MG TAB PO SCH (20:58)
[2018-08-14] MEDS: DIAZEPAM 5 MG TAB PO PRN (20:58)
[2018-08-14] MEDS: traZODone HCL 50 MG TAB PO SCH (20:58)
[2018-08-15] MEDS: traMADol 50 MG TAB PO PRN ×3 (01:29→23:31)
[2018-08-15] MEDS: oxyCODONE HCL 5 MG CAP PO PRN ×2 (05:04→17:32)
[2018-08-15 07:28] VITALS: BP 143/74
[2018-08-15] MEDS: POLYETHYLENE GLYCOL 17 GM PKT PO SCH (09:00)
[2018-08-15] MEDS: PANTOPRAZOLE SOD 20 MG TABEC PO SCH (09:11)
[2018-08-15] MEDS: ATENOLOL 50 MG TAB PO SCH (09:11)
[2018-08-15] MEDS: DOCUSATE SODIUM 100 MG CAP PO SCH ×2 (09:11→20:28)
[2018-08-15] MEDS: CHOLECALCIFEROL 1000 UNIT TAB PO SCH ×2 (09:11→20:28)
[2018-08-15] MEDS: CETIRIZINE HCL 10 MG TAB PO SCH (09:11)
[2018-08-15] MEDS: LACTOBACILLUS ACIDOPHILUS TAB PO SCH (09:11)
[2018-08-15] MEDS: GABAPENTIN 300 MG CAP PO PRN (09:11)
[2018-08-15] MEDS: FOLIC ACID/CYANOCOB/PYRIDOXINE PO SCH (09:11)
[2018-08-15] MEDS: buPROPion XL 150 MG TABCR PO SCH (09:12)
[2018-08-15] MEDS: diphenhydrAMINE 25 MG CAP PO PRN ×2 (10:22→20:30)
--- NOTE | 2018-08-15 12:11 | NUR ---
Occupational Therapy Impression CGA ambulation to/from toilet with RW. Max A toileting. Min A UB dressing. Mod A LB dressing with national investigative producer. Mod A sit to supine with cues for log roll. Pt will benefit from further AE equipment education in future tx sessions (toilet aid/sock aid). Continue POC. Occupational Therapy Goals 1) Pt will be SBA UB/LB dressing. 2) Pt will be SBA toilet task. 3) Pt will be SBA grooming/hygiene. 4) Pt will be Min A shower task. 5) Pt Abel Index of ADLs score will improve by 2 points. Patient's Goal
--- NOTE | 2018-08-15 14:02 | Hospitalist Progress Note ---
Subjective Progress Notes Subjective She was admitted to [facility] for further rehab. She has been working with PT. Patient Complains of: Cardiovascular: No: Chest Pain Respiratory: No: Shortness of Breath Physical Exam Vital Signs Date Time Temp Pulse Resp B/P (MAP) Pulse Ox O2 Delivery O2 Flow Rate FiO2 08/15/18 11:21 86 08/15/18 10:41 Room Air 08/15/18 09:08 64 08/15/18 07:28 97.9 13 143/74 (97) 08/14/18 10:59 1.0 Intake and Output 08/15/18 07:01 Intake Total 480 ml Output Total 3050 ml Balance -2570 ml Intake Oral 480 ml Output Urine Total 3050 ml # Bowel Movements 1 General Appearance: Alert, Awake, No Acute Distress, Afebrile Neuro: No Gross deficits Cardiovascular: Regular Rate and Rhythm Respiratory: No Respiratory Distress, Clear to Auscultation GI: Soft and Non-Tender Integumentary: Other (rash to trunk improving, less itchy) Psych: Alert & Oriented X3, Appropriate Mood & Affect Result Diagram: 08/13/18 0717 08/13/18 0717 Assessment and Plan Problems: (1) Status post lumbar spinal fusion Status: Acute Assessment & Plan: She was admitted to [facility] for further rehab after surgery. Advised should continue to hold estrogen replacement until ambulating better. (2) HTN (hypertension) Status: Chronic Assessment & Plan: Chronically on atenolol. It was continued with hold parameters. (3) Urinary retention Status: Acute Assessment & Plan: She has been having difficulty urinating. She had a Devine placed, and is trying voiding trial today. Urology consulted. (4) Adjustment disorder with mixed anxiety and depressed mood *Optional Permanent Comment*: related to recent medical stressor Last Edited By: Ezequiel Daily on Aug 10, 2018 13:16 Status: Acute Assessment & Plan: Consult psych. She was started on Trazodone and Zoloft. Problem Qualifiers (1) HTN (hypertension): Hypertension type: essential hypertension Qualified Codes: I10 - Essential (primary) hypertension NUPUR [facility] Aug 15, 2018 14:02
--- NOTE | 2018-08-15 14:41 | NUR ---
Physical Therapy Impression Attempted to see Pt, nursing performing procedure. PT unable to complete visit this day due to medical procedure. Physical Therapy Goals 1. Carleen bed mobility, with correct log roll technique 2. Carleen transfers 3. Carleen ambulation of 150 ft. with use of least restrictive assisted device 4. Carleen ability to ascend/descend 1 stair, to stimulate curb in environent. 5. Independent adherence to lumbar fusion precautions. Patient's Goals
[2018-08-15 15:14] VITALS: BP 126/59
[2018-08-15] MEDS: SERTRALINE HCL 50 MG TAB PO SCH (20:28)
[2018-08-15] MEDS: traZODone HCL 50 MG TAB PO SCH (20:28)
[2018-08-15] MEDS: DIAZEPAM 5 MG TAB PO PRN (23:31)
[2018-08-16] MEDS: oxyCODONE HCL 5 MG CAP PO PRN ×3 (01:52→19:16)
[2018-08-16 07:33] VITALS: BP 119/68
[2018-08-16] MEDS: ACETAMINOPHEN 500 MG TAB PO PRN (08:30)
[2018-08-16] MEDS: GABAPENTIN 300 MG CAP PO SCH (08:31)
[2018-08-16] MEDS: ATENOLOL 50 MG TAB PO SCH (08:31)
[2018-08-16] MEDS: CETIRIZINE HCL 10 MG TAB PO SCH (08:32)
[2018-08-16] MEDS: buPROPion XL 150 MG TABCR PO SCH (08:32)
[2018-08-16] MEDS: FOLIC ACID/CYANOCOB/PYRIDOXINE PO SCH (08:32)
[2018-08-16] MEDS: LACTOBACILLUS ACIDOPHILUS TAB PO SCH (08:32)
[2018-08-16] MEDS: CHOLECALCIFEROL 1000 UNIT TAB PO SCH ×2 (08:32→20:58)
[2018-08-16] MEDS: POLYETHYLENE GLYCOL 17 GM PKT PO SCH (08:32)
[2018-08-16] MEDS: PANTOPRAZOLE SOD 20 MG TABEC PO SCH (08:32)
[2018-08-16] MEDS: DOCUSATE SODIUM 100 MG CAP PO SCH ×2 (08:33→20:58)
--- NOTE | 2018-08-16 10:51 | NUR ---
Physical Therapy Impression Patient presents in benjamin chair and is agreeable to therapy. Patient reports that her left knee is hurting and asked about biofreeze. After speaking with nursing patient was advised to get it at [facility] and then the nurse would write an order to apply as a med from home. Patient transferred STS from chair by grabbing walker and standing. Patient ambulated ~10 feet to bed then transferred stand to sit with cuing to reach back for bed. Patient performed log roll transfer into bed with min A for B LE's and cuing for technique. Patient then was able to scoot left in bed I. Patient transferred log roll from supine to rolling left CGA then needed min A to help with B LE's to transfer from sidelying to sit EOB. Patient then instructed to transfer STS from EOB with cuing for proper positioning and weight shift and to push from bed. Patient performed STS from bed x 2 reps SBA. Patient then ambulated back to her benjamin chair with cues for posture and to bring her hips forward. Patient then transferred stand to sit with cuing to reach back with hands. Patient rested a minute then performed STS transfer from chair this time with proper technique with minimal cuing. Patient stood for a few minutes working on posture and bringing her hips forward when standing. Patient demonstrated proper technique with transfers but needs practice and increased strength to be able to perform I. Physical Therapy Goals 1. Carlene bed mobility, with correct log roll technique 2. Carleen transfers 3. Carleen ambulation of 150 ft. with use of least restrictive assisted device 4. Carleen ability to ascend/descend 1 stair, to stimulate curb in environent. 5. Independent adherence to lumbar fusion precautions. Patient's Goals
--- NOTE | 2018-08-16 10:52 | NUR ---
Occupational Therapy Impression CGA ambulation x20ft, x30ft with RW. Pt demonstrating improved tolerance for functional mobility and ambulation to toilet. Recommend transition to RW with nursing staff tomorrow (remove EZ lift), pt agreeable with plan. Mod (I) donning/doffing socks with AE. Reviewed possible AE needs to include sock aid, patent drafter, and toileting aid. Continue POC. Occupational Therapy Goals 1) Pt will be SBA UB/LB dressing. 2) Pt will be SBA toilet task. 3) Pt will be SBA grooming/hygiene. 4) Pt will be Min A shower task. 5) Pt Abel Index of ADLs score will improve by 2 points. Patient's Goal
[2018-08-16 16:55] VITALS: BP 110/67
[2018-08-16] MEDS: traZODone HCL 50 MG TAB PO SCH (20:58)
[2018-08-16] MEDS: SERTRALINE HCL 50 MG TAB PO SCH (20:58)
[2018-08-16] MEDS: diphenhydrAMINE 25 MG CAP PO PRN (21:02)
[2018-08-17 07:39] VITALS: BP 135/87
[2018-08-17] MEDS: oxyCODONE HCL 5 MG CAP PO PRN ×2 (08:47→14:45)
[2018-08-17] MEDS: CHOLECALCIFEROL 1000 UNIT TAB PO SCH ×2 (08:48→20:41)
[2018-08-17] MEDS: buPROPion XL 150 MG TABCR PO SCH (08:48)
[2018-08-17] MEDS: CETIRIZINE HCL 10 MG TAB PO SCH (08:48)
[2018-08-17] MEDS: PANTOPRAZOLE SOD 20 MG TABEC PO SCH (08:48)
[2018-08-17] MEDS: FOLIC ACID/CYANOCOB/PYRIDOXINE PO SCH (08:48)
[2018-08-17] MEDS: GABAPENTIN 300 MG CAP PO SCH (08:48)
[2018-08-17] MEDS: POLYETHYLENE GLYCOL 17 GM PKT PO SCH (08:48)
[2018-08-17] MEDS: ATENOLOL 50 MG TAB PO SCH (08:48)
[2018-08-17] MEDS: LACTOBACILLUS ACIDOPHILUS TAB PO SCH (08:48)
[2018-08-17] MEDS: DOCUSATE SODIUM 100 MG CAP PO SCH ×2 (08:49→20:41)
--- NOTE | 2018-08-17 10:39 | NUR ---
Occupational Therapy Impression CGA ambulation [id number] with RW. Cues for management of RW. Pt reports use of 4WW at home. Will need to address appropriate assistive device. Discussion regarding AE and bathtub transfer. Mod (I) LB dressing. Continue POC. Occupational Therapy Goals 1) Pt will be SBA UB/LB dressing. 2) Pt will be SBA toilet task. 3) Pt will be SBA grooming/hygiene. 4) Pt will be Min A shower task. 5) Pt Abel Index of ADLs score will improve by 2 points. Patient's Goal
--- NOTE | 2018-08-17 11:18 | NUR ---
5-day MDS completed with pt. C: 15, D: 03- pt reports having chronic depression, recovery on ECF has been difficult being away from home and family, E: no concerns, Q: plans to DC to community, no referrals made yet. SW will continue to follow for DC needs. SW had further conversation regarding her depression, pt reports she has taken antidepressants chronically and reports this helps. Also reports she takes hormone supplements which help as well. Pt voices difficulty in recovering and being away from home, states she is feeling optimistic throughout healing and hopeful to DC home next week.
--- NOTE | 2018-08-17 12:58 | NUR ---
This Physical Therapist or Sales Analyst was present for the entire physical therapy session directing the services, making the skilled judgement, and was not engaged in treating another patient or doing another task at the same time as the treatment session. Addendum: 08/17/18 at 1258 by TRINO ORTA PT Amended: Links added.
--- NOTE | 2018-08-17 12:59 | NUR ---
Physical Therapy Impression Pt refuses ambulation, but eager to work on seated therex. Therex performed seated in reclining chair with brace on: Marching, FAQ, and hip abd/add. 1x15 performed for therex. Cues provided to limit ROM of marching exercise to limit strain on back. 6x sit<>stand performed out of reclining chair. Pt instructed on scooting to edge of chair and keeping chest high throughout transfer. Pt reports weakness in R leg, and feeling as if it would go out. CGA provided throughout as Pt appeared unsteady for several of the transfers. Pt appeared to have adequate strength to perform transfers, but Pt is lacking confidence. Pt left sitting in chair with all needs met and call light in reach. Pt would benefit from further skilled PT care to ensure safe ambulation and transfers. Physical Therapy Goals 1. Carleen bed mobility, with correct log roll technique 2. Carleen transfers 3. Carleen ambulation of 150 ft. with use of least restrictive assisted device 4. Carleen ability to ascend/descend 1 stair, to stimulate curb in environent. 5. Independent adherence to lumbar fusion precautions. Patient's Goals
[2018-08-17 15:00] VITALS: BP 121/75
[2018-08-17] MEDS: traZODone HCL 50 MG TAB PO SCH (20:41)
[2018-08-17] MEDS: SERTRALINE HCL 50 MG TAB PO SCH (20:41)
[2018-08-18] MEDS: traMADol 50 MG TAB PO PRN ×2 (03:51→15:44)
[2018-08-18 07:20] VITALS: BP 156/74
[2018-08-18] MEDS: POLYETHYLENE GLYCOL 17 GM PKT PO SCH (08:48)
[2018-08-18] MEDS: PANTOPRAZOLE SOD 20 MG TABEC PO SCH (08:49)
[2018-08-18] MEDS: GABAPENTIN 300 MG CAP PO SCH (08:49)
[2018-08-18] MEDS: DOCUSATE SODIUM 100 MG CAP PO SCH ×2 (08:49→21:30)
[2018-08-18] MEDS: ATENOLOL 50 MG TAB PO SCH (08:49)
[2018-08-18] MEDS: FOLIC ACID/CYANOCOB/PYRIDOXINE PO SCH (08:49)
[2018-08-18] MEDS: LACTOBACILLUS ACIDOPHILUS TAB PO SCH (08:49)
[2018-08-18] MEDS: CETIRIZINE HCL 10 MG TAB PO SCH (08:49)
[2018-08-18] MEDS: CHOLECALCIFEROL 1000 UNIT TAB PO SCH ×2 (08:49→21:30)
[2018-08-18] MEDS: buPROPion XL 150 MG TABCR PO SCH (08:49)
[2018-08-18] MEDS: oxyCODONE HCL 5 MG CAP PO PRN ×2 (09:30→21:30)
--- NOTE | 2018-08-18 10:22 | NUR ---
Physical Therapy Impression Patient presents in room and is agreeable to therapy. She reports she slept really badly last night and is in quite a bit of pain and then rated it a 4/10. Nursing was notified. Patient instructed in gait training with FWW in hallway ~ 350 feet with 3 standing rest breaks and constant cuing to stand tall and stay close to walker. Patient was able to ambulate further with distraction without needing a standing rest break. Patient was able to demonstrate proper transfer technique pushing from chair when going from STS. Patient left in benjamin chair with call light. Physical Therapy Goals 1. Carleen bed mobility, with correct log roll technique 2. Carleen transfers 3. Carleen ambulation of 150 ft. with use of least restrictive assisted device 4. Carleen ability to ascend/descend 1 stair, to stimulate curb in environent. 5. Independent adherence to lumbar fusion precautions. Patient's Goals
[2018-08-18 15:46] VITALS: BP 139/71
--- NOTE | 2018-08-18 18:41 | NUR ---
Catheter Leaking The new catheter was leaking from specimen port (I used the port to obtain a UA & C/S). Covered with male adapter clave, and leaking has ceased.
[2018-08-18] MEDS: AMOX/CLAV 875 MG TAB PO SCH (19:34)
[2018-08-18] MEDS: CALCIUM CARBONATE 500 MG CHEW PO PRN (19:34)
[2018-08-18] MEDS: traZODone HCL 50 MG TAB PO SCH (21:29)
[2018-08-18] MEDS: SERTRALINE HCL 50 MG TAB PO SCH (21:30)
[2018-08-19] MEDS: traMADol 50 MG TAB PO PRN ×2 (00:26→20:39)
[2018-08-19] MEDS: oxyCODONE HCL 5 MG CAP PO PRN ×2 (05:52→15:44)
[2018-08-19 07:25] VITALS: BP 112/74
[2018-08-19] MEDS: DOCUSATE SODIUM 100 MG CAP PO SCH ×2 (08:28→20:38)
[2018-08-19] MEDS: GABAPENTIN 300 MG CAP PO SCH (08:28)
[2018-08-19] MEDS: PANTOPRAZOLE SOD 20 MG TABEC PO SCH (08:28)
[2018-08-19] MEDS: CETIRIZINE HCL 10 MG TAB PO SCH (08:29)
[2018-08-19] MEDS: LACTOBACILLUS ACIDOPHILUS TAB PO SCH (08:29)
[2018-08-19] MEDS: AMOX/CLAV 875 MG TAB PO SCH ×2 (08:29→17:26)
[2018-08-19] MEDS: FOLIC ACID/CYANOCOB/PYRIDOXINE PO SCH (08:29)
[2018-08-19] MEDS: buPROPion XL 150 MG TABCR PO SCH (08:29)
[2018-08-19] MEDS: POLYETHYLENE GLYCOL 17 GM PKT PO SCH (08:30)
[2018-08-19] MEDS: CHOLECALCIFEROL 1000 UNIT TAB PO SCH ×2 (08:30→20:40)
[2018-08-19] MEDS: ATENOLOL 50 MG TAB PO SCH (08:31)
[2018-08-19 16:00] VITALS: BP 118/73
[2018-08-19] MEDS: MAGNESIUM HYDROXIDE* 30ML UDCP PO PRN (20:38)
[2018-08-19] MEDS: SERTRALINE HCL 50 MG TAB PO SCH (20:40)
[2018-08-19] MEDS: traZODone HCL 50 MG TAB PO SCH (20:40)
[2018-08-20] MEDS: ACETAMINOPHEN 500 MG TAB PO PRN (05:54)
[2018-08-20 08:04] VITALS: BP 128/50
[2018-08-20] MEDS: DOCUSATE SODIUM 100 MG CAP PO SCH ×2 (08:32→21:38)
[2018-08-20] MEDS: AMOX/CLAV 875 MG TAB PO SCH ×2 (08:34→17:28)
[2018-08-20] MEDS: buPROPion XL 150 MG TABCR PO SCH (08:34)
[2018-08-20] MEDS: LACTOBACILLUS ACIDOPHILUS TAB PO SCH (08:34)
[2018-08-20] MEDS: GABAPENTIN 300 MG CAP PO SCH (08:34)
[2018-08-20] MEDS: PANTOPRAZOLE SOD 20 MG TABEC PO SCH (08:34)
[2018-08-20] MEDS: FOLIC ACID/CYANOCOB/PYRIDOXINE PO SCH (08:34)
[2018-08-20] MEDS: CETIRIZINE HCL 10 MG TAB PO SCH (08:34)
[2018-08-20] MEDS: CHOLECALCIFEROL 1000 UNIT TAB PO SCH ×2 (08:34→21:38)
[2018-08-20] MEDS: traMADol 50 MG TAB PO PRN ×2 (08:35→14:27)
[2018-08-20] MEDS: ATENOLOL 50 MG TAB PO SCH (08:36)
[2018-08-20] MEDS: POLYETHYLENE GLYCOL 17 GM PKT PO SCH (08:36)
--- NOTE | 2018-08-20 12:21 | NUR ---
Occupational Therapy Impression SBA ambulation with 4WW x30ft, x45ft, x150ft, x150ft. Pt requires occasional v/c's for safety and sequencing with 4WW, demonstrates good carryover. Set-up shower task seated. SBA with v/c's bathtub transfer with extended tub transfer bench. Mod (I) UB/LB dressing. Independent grooming seated. Pt nearing OT goals. Occupational Therapy Goals 1) Pt will be SBA UB/LB dressing. 2) Pt will be SBA toilet task. 3) Pt will be SBA grooming/hygiene. 4) Pt will be Min A shower task. 5) Pt Abel Index of ADLs score will improve by 2 points. Patient's Goal
[2018-08-20 15:22] VITALS: BP 136/62
--- NOTE | 2018-08-20 15:39 | NUR ---
Physical Therapy Impression Pt demonstrated signifcant improvement in endurance today, ambulating >1000 ft. Pt performed sit<>stand transfer with Carleen use of 4WW. Pt ambulated >1000 ft with Carleen use of Four wheeled walker and verbal cues. Verbal cues provided to stand up taller/walk closer to 4WW. Pt able to negotiate ramp without difficulty. No additional cueing required for ramp. Pt did not need any breaks throughout session, and appeared to have steady balance. Pt is nearing PT goals, still needing to perform stair training. Physical Therapy Goals 1. Carleen bed mobility, with correct log roll technique 2. Carleen transfers 3. Carleen ambulation of 150 ft. with use of least restrictive assisted device 4. Carleen ability to ascend/descend 1 stair, to stimulate curb in environent. 5. Independent adherence to lumbar fusion precautions. Patient's Goals
--- NOTE | 2018-08-20 15:39 | NUR ---
This Physical Therapist or Account Support Associate was present for the entire physical therapy session directing the services, making the skilled judgement, and was not engaged in treating another patient or doing another task at the same time as the treatment session. Addendum: 08/20/18 at 1539 by TRINO ORTA PT Amended: Links added.
--- NOTE | 2018-08-20 15:52 | Medical Nutrition Therapy ---
Nutrition Anthropometrics Height (Inches): 64.00 Height (Calculated Centimeters: 162.066335 Weight (Pounds): 205 Weight (Calculated Kilograms): 92.986 BMI: 35.8 Hx Weight Loss: Yes (Intentional Wt Loss (Pt states lost 30 lbs within the last year)) Dalton Nutrition Score: Adequate Dalton Nutrition Risk Score: 17 Dietary Referral Nutrition Risk Factors: Nutrition Risk Comment: Physical Findings Physical Appearance: Obese BMI 30-39 Skin Appearance Skin Appearance: Edema Edema Location Modifier: Both Edema Location: Lower Extremity Type of Edema: Degree of Edema: nonpitting Gastrointestinal Symptoms GI Symtoms: Constipation, Change in Bowel Pattern Tube Present: Bowel Sounds: Recent Bowel Pattern: Constipated Stool Characteristics: Nutritional Diagnosis Nutritional Risk Acuity 3: Fair Appetite Past Medical History: HTN,Gastric Bypass Nutritional Acuity: 3-Mild Energy Requirement: 1895 (MSJ) Protein Requirement: 92 (1g/kg) Fluid Requirement: 1836 (20mL/kg) Diet Type: Diet as Tolerated DEDE/REG Diet Comment To RSA: Please send fruit cup at 1000 and veggies at 1400 every day. Nutrition Monitoring & Eval Nutrition Goals: Eat 75-100% Meal Nutrition Follow-Up: Fair Intake RD Patient Assessment Time: [address] Assessment Type: RD Re-Assessment Patient Nutrition Acuity: 3-Mild Follow Up Date: Aug 28, 2018 Nutritional Comment: 08/10/18-Reviewed pt histort, past visit record. Talked to pt this afternoon. Pt has had decreased appetite while here, usually good appetite at home. Pt reported intentional wt loss of 30 lbs over the past year. Pt has hx of HTN, discussed low sodium diet for mgmt of HTN. Pt has a hx of gastric bypass. Reported med list from previous visit shows taking necessary vitamins post gastric bypass. RD will continue to monitor intake, weight, and need for additional nutrition education.REINALDO 08/13 Pt cont on DEDE, eating averaged of 53% of meals past 3 days. Wt up 3# since admit. Pt has nonpitting edema BLE. Anticipate wt loss when edema resolved. Hgb 9.2, Hct 28.4, Alb 2.6. Will cont to monitor and encourage healthy intake. JUAN 08/20 Pt cont on DEDE. Intake averge 60%. Wt 205#. No new labs. Pt cont nonpitting edema BLE. Will cont to monitor and encourage intake. ANGELICA LUCAS Aug 20, 2018 15:52
--- NOTE | 2018-08-20 20:11 | Antimicrobial Stewardship ---
Antimicrobial Time Out Antimicrobial Stewardship MD Service: Hospitalist Indications: UTI Antimicrobial Used AUGMENTIN 875MG Start Date: Aug 19, 2018 Culture Results: Yes (JONES SENS ECOLI) Eligible for PO Conversion Eligable for PO Conversion: Yes (ON PO) Reviewed with Provider Reviewed w/ Provider on Rounds: No TRINIDAD BRANTLEY Aug 20, 2018 20:11
[2018-08-20] MEDS: SERTRALINE HCL 50 MG TAB PO SCH (21:38)
[2018-08-20] MEDS: traZODone HCL 50 MG TAB PO SCH (21:38)
[2018-08-20] MEDS: oxyCODONE HCL 5 MG CAP PO PRN (22:45)
[2018-08-21] MEDS: traMADol 50 MG TAB PO PRN ×2 (01:50→08:09)
--- NOTE | 2018-08-21 04:10 | NUR ---
Tamez catheter Per MD order, urinary catheter was discontinued @ 0000 for a trial void. Within the first 4 hours, pt attempted to void independently x2. 1st attempt- zero output. 2nd attempt at approx 0400- 10mls output. Bladder scanner showing a PVR of 874mls. Pt stated that she felt "fullness" and "I feel like I really need to go", but is so far unsuccessful. MD order states that tamez is to be reinserted if pt feels uncomfortable, is unable to void or if PVR is greater than 500mls. Tamez was reinserted at approx. 0400. with an immediate output of 575mls light yellow, cloudy urine and still draining. Pt tolerated procedure well.
[2018-08-21] MEDS: ACETAMINOPHEN 500 MG TAB PO PRN (06:11)
[2018-08-21 08:05] VITALS: BP 139/77
[2018-08-21] MEDS: POLYETHYLENE GLYCOL 17 GM PKT PO SCH (09:00)
[2018-08-21] MEDS: AMOX/CLAV 875 MG TAB PO SCH ×2 (09:36→17:18)
[2018-08-21] MEDS: LACTOBACILLUS ACIDOPHILUS TAB PO SCH (09:36)
[2018-08-21] MEDS: buPROPion XL 150 MG TABCR PO SCH (09:36)
[2018-08-21] MEDS: PANTOPRAZOLE SOD 20 MG TABEC PO SCH (09:36)
[2018-08-21] MEDS: CHOLECALCIFEROL 1000 UNIT TAB PO SCH ×2 (09:36→20:57)
[2018-08-21] MEDS: DOCUSATE SODIUM 100 MG CAP PO SCH ×2 (09:37→20:57)
[2018-08-21] MEDS: GABAPENTIN 300 MG CAP PO SCH (09:37)
[2018-08-21] MEDS: CETIRIZINE HCL 10 MG TAB PO SCH (09:37)
[2018-08-21] MEDS: FOLIC ACID/CYANOCOB/PYRIDOXINE PO SCH (09:37)
[2018-08-21] MEDS: ATENOLOL 50 MG TAB PO SCH (09:37)
--- NOTE | 2018-08-21 09:48 | NUR ---
Occupational Therapy Impression Mod (I) ambulation [id number] with 4WW. Pt with good safety awareness utilizing 4WW. Independent managing catheter. Mod (I) donning/doffing shoes. SBA dynamic balance challenges in kitchen. Discussion regarding AE needs. Pt has met all skilled OT goals. Occupational Therapy Goals 1) Pt will be SBA UB/LB dressing. 2) Pt will be SBA toilet task. 3) Pt will be SBA grooming/hygiene. 4) Pt will be Min A shower task. 5) Pt Abel Index of ADLs score will improve by 2 points. Patient's Goal
--- NOTE | 2018-08-21 09:55 | NUR ---
Physical Therapy Impression Raised the patients bed to simulate bed at home she needed mod cues for transfer and cuing to get tamez bag prior to transferring as she will not be able to reach it once she is in bed. Patient educated to go to [facility] and buy an aerobic step to slide under bed so that when she gets in bed her can pull it out and she can place her feet on it to transfer EOB to sidelying and then log roll into bed. Patient performed sit EOB to sidelying and this was difficult for her. Patient ambulated to gym and back after working on platform step and stairs ~430 feet with SBA and cuing for posture and to keep walker close and for brakes with transfers. Patient performed platform step with 4WW in gym with demonstration and then patient returned demo with CGA and cuing for sequencing and brakes. Patient ascended and descended 4 stairs with CGA and cuing for sequencing with railing on both sides. Patient was left in room in benjamin chair with call light with nursing nearby and in room. All goals are met and patient is safe to d/c to home with HH. Physical Therapy Goals 1. Carleen bed mobility, with correct log roll technique 2. Carleen transfers 3. Carleen ambulation of 150 ft. with use of least restrictive assisted device 4. Carleen ability to ascend/descend 1 stair, to stimulate curb in environent. 5. Independent adherence to lumbar fusion precautions. Patient's Goals
--- NOTE | 2018-08-21 15:00 | NUR ---
DC MDS completed with pt. C: 15, D: 05- pt reports having chronic depression, recovery on ECF has been difficult being away from home and family, however doing well and excited for DC to home on 08/22, E: no concerns, Q: plans to DC to community, referral made for [facility]. SW will continue to follow for DC needs.
[2018-08-21 18:56] VITALS: BP 142/78
[2018-08-21] MEDS: oxyCODONE HCL 5 MG CAP PO PRN (20:57)
[2018-08-21] MEDS: traZODone HCL 50 MG TAB PO SCH (20:57)
[2018-08-21] MEDS: SERTRALINE HCL 50 MG TAB PO SCH (20:57)
[2018-08-22 07:08] VITALS: BP 114/64
[2018-08-22] MEDS: DOCUSATE SODIUM 100 MG CAP PO SCH (09:00)
[2018-08-22] MEDS: POLYETHYLENE GLYCOL 17 GM PKT PO SCH (09:00)
[2018-08-22 09:21] VITALS: BP 133/61
[2018-08-22] MEDS: FOLIC ACID/CYANOCOB/PYRIDOXINE PO SCH (09:22)
[2018-08-22] MEDS: buPROPion XL 150 MG TABCR PO SCH (09:23)
[2018-08-22] MEDS: GABAPENTIN 300 MG CAP PO SCH (09:23)
[2018-08-22] MEDS: AMOX/CLAV 875 MG TAB PO SCH (09:23)
[2018-08-22] MEDS: PANTOPRAZOLE SOD 20 MG TABEC PO SCH (09:23)
[2018-08-22] MEDS: ATENOLOL 50 MG TAB PO SCH (09:23)
[2018-08-22] MEDS: CETIRIZINE HCL 10 MG TAB PO SCH (09:24)
[2018-08-22] MEDS: LACTOBACILLUS ACIDOPHILUS TAB PO SCH (09:24)
[2018-08-22] MEDS: CHOLECALCIFEROL 1000 UNIT TAB PO SCH (09:24)
[2018-08-22] MEDS ORDERED: AMOX1TAB9 PO (14:08)
[2018-08-22] MEDS ORDERED: TRAZ50TA52 PO (14:20)
--- NOTE | 2018-08-22 14:29 | Hospitalist Depart ---
Discharge Summary Reason for Hosp/Final Diag: (1) Status post lumbar spinal fusion Status: Acute Hospital Course & Plan: She was admitted to [facility] for further rehab after back odom rgery. She worked with therapy (PT,OT) and progressed. Advised should continue to hold estrogen replacement until ambulating better. She will discuss with Dr. Baez at her outpatient follow up appointment on August 28. (2) HTN (hypertension) Status: Chronic Hospital Course & Plan: Chronically on atenolol. It was continued with hold parameters. (3) Urinary retention Status: Acute Hospital Course & Plan: She had having difficulty urinating. She had a Tamez placed, and failed several voiding trials. The Tamez was left in place and she will follow up with urology in [facility]. She also developed a UTI due to pansensitive E. coli and was started on Augmentin. (4) Adjustment disorder with mixed anxiety and depressed mood *Optional Permanent Comment*: related to recent medical stressor Last Edited By: Ezequiel Daily on Aug 10, 2018 13:16 Status: Acute Hospital Course & Plan: Psychiatry was consulted. She was started on Trazodone and Zoloft. She is feeling better and would like to stop the sertraline. Will discharge with #20 trazodone to be taken prn for insomnia. (5) Urinary tract infection Status: Acute Hospital Course & Plan: Likely due to Tamez catheter. Culture grew pansensitive E. coli. She will finish a course of Augmentin. Departure Weight (Pounds): 205 Condition: Improved Discharge: Home, Home Health PT/OT Follow Up For: PT For Strengthening, OT For ADL's Home Health RN Follow Up For: Cathether Care, Nursing Assessment Time Spent: < 30 min Discharge Instructions Home Meds Active Scripts Trazodone Hcl (TRAZODONE HCL) 50 Mg Tablet, 50 MG PO QHS PRN for INSOMNIA, #20 TAB Prov:PRAVEEN CABRAL MD 08/22/18 Amoxicillin/Potassium Clav (AMOX TR-K CLV 875-125 MG TAB) 1 Each Tablet, 875 MG PO BIDBS, #12 TAB Prov:PRAVEEN CABRAL MD 08/22/18 Reported Medications Omeprazole Magnesium (PRILOSEC OTC) 20 Mg Tablet.dr, 1 TAB PO QDAY, TAB 08/01/18 Lactobacillus Combination No.4 (PROBIOTIC) 1 Each Capsule, 1 EACH PO QDAY, CAPSULE 08/01/18 Cholecalciferol (Vitamin D3) (VITAMIN D3) 1,000 Unit Tablet, 5000 UNIT PO BID, TAB 08/01/18 Glucosa Odom 2KCL/Chondroitin Odom (GLUCOSAMINE & CHONDROITIN CAP) 1 Each Capsule, 1 EACH PO QDAY, CAPSULE 08/01/18 Garlic (GARLIC OIL) 1,000 Mg Capsule, 1000 MG PO QDAY, CAPSULE 08/01/18 Potassium Gluconate (POTASSIUM) 99 Mg Tablet, 99 MG PO QDAY 08/01/18 Copper Gluconate (COPPER) 2 Mg Capsule, 2 MG PO QDAY, CAPSULE 08/01/18 Vitamin B Complex (VITAMIN B COMPLEX) 1 Each Capsule, 1 EACH PO QDAY, CAPSULE 08/01/18 Vitamin E Acetate (VITAMIN E) 400 Unit Capsule, 400 UNITS PO QDAY, CAPSULE 08/01/18 Vitamin A (VITAMIN A) 8,000 Unit Capsule, 8000 UNIT PO QDAY, CAPSULE 08/01/18 Acetaminophen (TYLENOL EXTRA STRENGTH) 500 Mg Tablet, 500-1000 MG PO PRN, TAB 08/01/18 Gabapentin (GABAPENTIN) 300 Mg Capsule, 300 MG PO PRN PRN for PRN, CAPSULE 08/01/18 Atenolol (ATENOLOL) 50 Mg Tablet, 1 TAB PO QDAY, TAB 08/01/18 Bupropion Hcl (WELLBUTRIN XL) 300 Mg Tab.er.24h, 300 MG PO QDAY, TAB 08/01/18 Discontinued Reported Medications Tramadol Hcl (TRAMADOL HCL) 50 Mg Tablet, 50-100 MG PO Q6H PRN for PAIN, TAB 08/01/18 Diclofenac Sodium (DICLOFENAC SODIUM) 75 Mg Tablet.dr, 75 MG PO BID, TAB 08/01/18 Estrogen,Merced/Me-Testosterone (ESTROGEN-METHYLTESTOS F.S. TAB) 1 Each Tablet, 1.5-2.5 MG PO QDAY 08/01/18 Diet: Regular Activity: As Tolerated Special Instructions: Keep tamez catheter in for one month. Follow up with Dr. Kimbrough or a urologist in your area 09/20/18. Finish your antibiotic prescription for your UTI. This has been sent to your pharmacy. Follow up with Dr. Baez 08/28/18 at 10:15 as scheduled. Follow up with Dr. Josh Jiménez as previously recommended. Copies to: ADAL BAEZ MD; ADAL KIMBROUGH MD ; Venous Thromboembolism Antithrombotics Is Pt On Any Antithrombotics?: No [id number] Certification Face to Face Home Health Certification Patient's Primary Care Provider: Institutional Provider conducted the [id number] encounter. Electronic Undersigning Physician Certifies Home Health. I certify that the patient has been under my care and that I had a [id number] encounter that meets the physician [id number] encounter requirements with this patient. This patient is home-bound due to safety issues and continues to require assistance with ADL's. I certify that based on my findings, that Nursing, Aides and the following Home Health services are medically necessary: PT and OT Medical Necessity: Nursing, Rehab Date Face to Face Conducted: Aug 22, 2018 Problem Qualifiers (1) HTN (hypertension): Hypertension type: essential hypertension Qualified Codes: I10 - Essential (primary) hypertension PRAVEEN CABRAL MD Aug 22, 2018 14:29
[2018-08-22] MEDS: traMADol 50 MG TAB PO PRN (15:01)
--- NOTE | 2018-08-22 15:17 | OT ECF NOTE ---
Type of Note: Discharge Note Primary Medical Diagnosis: Generalized weakness s/p lumbar fusion (see EMR for extensive details). *Lumbar Precautions, [place] brace when OOB* Occupational Therapy Evaluation Date: 08/10/18 SUBJECTIVE: Prior Hospitalization: [facility] 08/08/18-08/10/18 Prior Level of Function: Modified Independent with ADLs. Assist for IADLs. Occasional use of RW or cane for functional mobility. Prior Living Status: Single level house, Spouse Community Services: No known needs Home Accessibility: Ramp All needs on one level Tub/shower combination Equipment Owned: Rollator Tub/shower chair Medical Complications/Past Medical History: Please refer to EMR Psychosocial Support: Spouse Pain Scale (0-10): Pt reporting minimal pain in R) LE during last OT tx session (08/22/18). OBJECTIVE: Strength: MMT: Right Left Shoulder Flexion WFL WFL Elbow Flexion WFL WFL Wrist Extension WFL WFL Director Of Business Applications WFL WFL (5= normal, 4= good, 3= fair, 2= poor, 1= trace) ROM: Both upper extremities, WFL Functional Transfer: Assistive Device: 4WW Transfer Ability: Modified Independent ADL: Upper body dressing: Assistive device: None Upper body dressing ability: Independent Lower body dressing: Assistive device: Sock aid/Card Boxer Lower body dressing ability: Modified Independent Toileting: Assistive device: Toilet Riser Toileting ability: Modified Independent Grooming/hygiene: Assistive device: None Grooming ability: Independent Bathing: Assistive device: Extended tub transfer bench Bathing ability: Set-up Standardized Assessment: Abel Index of Activities of Daily Livin/20 upon initial evaluation (08/10/18) . upon discharge (08/22/18). ASSESSMENT: Dora presented to [facility] requiring two person assist for stand pivot transfers or use of an EZ lift with staff. She progressed to being Mod (I) for ADLs and has met all skilled OT goals. Pt presents with no further questions/concerns for OT at time of discharge. Short Term Goals: 1) Pt will be SBA UB/LB dressing. GOAL MET 2) Pt will be SBA toilet task. GOAL MET 3) Pt will be SBA grooming/hygiene. GOAL MET 4) Pt will be Min A shower task. GOAL MET 5) Pt Abel Index of ADLs score will improve by 2 points. GOAL MET Circus Trainer Goals: Return home with HH services Patient Goals: Return home, "move better" Rehabilitation Prognosis: Fair Barriers to Discharge: pain PLAN: The patient will discharge home with HH services and assist from spouse as needed for IADLs. Thank you for this referral. If you have any questions, concerns, or comments about this report or plan, please contact me at . Ariane Hart MS, OTR/L Occupational Therapist [place]
--- NOTE | 2018-08-23 08:15 | PT ECF NOTE ---
Type of Note: Discharge Primary Medical Diagnosis: Lumbar Fusion Physical Therapy Evaluation Date: 08/10/2018 SUBJECTIVE: Prior Hospitalization: 08/08/2018 for lumbar fusion Prior Level of Function: Independent with ADLs, only needing assistance with "heavy cleaning". Occasional use of RW when pain increased Prior Living Status: Single level house with spouse Community Services: Independent, No known needs Home Accessibility: Ramp, All needs on one level Equipment Owned: Rollator Medical Complications/Past Medical History: See EMR OBJECTIVE: Strength: Not assessed Bed Mobility: Independent Assistive device: Transfers: Carleen sit to stand Assistive Device: Front wheeled walker Gait: Carleen x >1000 ft Assistive device: Front wheeled walker Stairs: Ascend/descend 4 stairs with CGA Assistive device: Railing ASSESSMENT: Pt demonstrating significant progress and achieving most, PT goals. Pt improving from only tolerating stand pivot transfers at evaluation, to ambulating over 1000 ft. Pt achieved all goals except stair goal,performing with CGA. Pt does not have stairs at home but does have a ramp and demonstrated Carleen ability to ascend/descend ramp. Pt pain is significantly reduced, allowing for more functional tasks. Pt safe to discharge home with HH. Problem List/Current Limitations: Pain, Decreased WB, Decreased activity roldan, Decreased strength, Decreased ROM, and Decreased balance Short Term Goals: Partially met 1. Carleen bed mobility, with correct log roll technique (met) 2. Carleen transfers (met) 3. Carleen ambulation of 150 ft. with use of least restrictive assisted device (met) 4. Carleen ability to ascend/descend 1 stair, to stimulate curb in environment. 5. Independent adherence to lumbar fusion precautions. (met) Rehabilitation Prognosis: Good Barriers for Discharge: Pain control PLAN: Pt will discharge home with home health and assistance from spouse. Thank you for this referral. If you have any questions, concerns, or comments about this report or plan, please contact me at . Jung Thayer, SPT Esther Barreto, PT, DPT MTDD
--- NOTE | 2018-08-23 13:18 | NUR ---
This Physical Therapist or Cardiac Tech was present for the entire physical therapy session directing the services, making the skilled judgement, and was not engaged in treating another patient or doing another task at the same time as the treatment session. Addendum: 08/23/18 at 1318 by FLEX ANDERSON PT Amended: Links added.
== END 2018-08-22 15:10 | disposition home health service (06) | DRG 950 ==
LOC: ECF 13:41
PROVIDERS: ADMIT Family Medicine; ATTEND Family Medicine
DX: Z48.811 Encounter for surgical aftercare following surgery on the nervous system (principal); T83.511A Infection and inflammatory reaction due to indwelling urethral catheter, initial encounter; I10 Essential (primary) hypertension; F43.23 Adjustment disorder with mixed anxiety and depressed mood; Z98.1 Arthrodesis status; R33.9 Retention of urine, unspecified; G47.00 Insomnia, unspecified; B96.20 Unspecified Escherichia coli [E. coli] as the cause of diseases classified elsewhere; Z90.710 Acquired absence of both cervix and uterus; Z98.84 Bariatric surgery status
CPT/HCPCS: 36415; 81001; 82040; 82247; 82310; 82374; 82435; 82565; 82947; 84075; 84132; 84155; 84295; 84450; 84460; 84520; 85025; 87077; 87088; 87186; 97161; 97166; Q0163